=== PATIENT | female | born 1940 | race Caucasian/White ===

== ENCOUNTER 2016-11-19 12:38 | Emergency (ER) | payer OTHER ==
[~2016-11-19] VITALS: Ht 152.4 cm; Wt 67.4 kg
[~2016-11-19 12:38] MED LIST: ASPEC81 PO; CHOL100010 PO; CRDCD240 PO; CRG3125 PO; CYAN100T PO; FLUCINONIDE TD; HYDC25 PO; NTRGSL/4 UT; RANI300T2 PO
[2016-11-19 12:40] VITALS: TEMP 36.4; Ht 152.4 cm; Wt 67.4 kg
[2016-11-19] MEDS ORDERED: SODIUM CHLORIDE 0.9% 1000ML 1,000 ML IV STA (13:02)
[2016-11-19 13:15] LABS: HEMATOCRIT 36.6 % (37-47); MEAN CELL VOLUME 85.3 fL (80-100); MEAN CORPUSCULAR HEMOGLOBIN 29.8 pg (25-34); MEAN PLATELET VOLUME 9.1 fL (7.4-10.4); PLATELET COUNT 298 K/uL (130-400); RED BLOOD COUNT 4.29 M/uL (4.2-5.4); WHITE BLOOD COUNT 4.76 K/uL (4.8-10.8)
--- NOTE | 2016-11-19 13:17 | DIAGNOSTIC IMAGING REPORT ---
CHEST ONE VIEW PORTABLE CLINICAL HISTORY: fatigue, cough cough. Dyspnea. COMPARISON STUDY: No previous studies for comparison. FINDINGS: The bones soft tissues and hemidiaphragms are normal. The cardiomediastinal silhouette is normal. The lungs are clear. The pulmonary vasculature is normal. IMPRESSION: Negative chest. Electronically signed by: Gerald Carbajal M.D. 11/19/2016 1:15 PM Dictated Date/Time: 11/19/2016 1:15 PM
[2016-11-19] MEDS ORDERED: CHOL1000 PO (13:25)
[2016-11-19] MEDS ORDERED: CYAN100T PO (13:25)
[2016-11-19] MEDS ORDERED: HYDR25TA4 PO (13:25)
[2016-11-19] MEDS ORDERED: ASPI-461 PO (13:25)
[2016-11-19] MEDS ORDERED: CARV25TA2 PO (13:25)
[2016-11-19] MEDS ORDERED: PRED-301 PO (13:25)
[2016-11-19] MEDS ORDERED: PRAV20TA PO (13:25)
[2016-11-19] MEDS ORDERED: LORA-741 PO (13:25)
[2016-11-19] MEDS ORDERED: IBUP-1050 PO (13:25)
[2016-11-19] MEDS ORDERED: DILT-115 PO (13:25)
[2016-11-19] MEDS ORDERED: FLUO0.0566 TOP (13:25)
[2016-11-19] MEDS ORDERED: ZNTT/150 PO (13:25)
[2016-11-19] MEDS ORDERED: LOSA50TA6 PO (13:25)
[2016-11-19 13:32] LABS: ALT/SGPT 19 U/L (12-78); BLOOD UREA NITROGEN 21 mg/dl (7-18); BUN/CREATININE RATIO 20.5 (10-20); CALCIUM 9.4 mg/dl (8.5-10.1); CARBON DIOXIDE 30 mmol/L (21-32); CHLORIDE 92 mmol/L (98-107); GLUCOSE 109 mg/dl (70-99); MAGNESIUM 1.9 mg/dl (1.8-2.4); SODIUM 132 mmol/L (136-145)
[2016-11-19 13:37] LABS: ALKALINE PHOSPHATASE 50 U/L (45-117); AST/SGOT 18 U/L (15-37)
[2016-11-19 13:39] LABS: BASO % 0.6 %; BASO ABS # 0.03 K/uL (0-0.2); COMPLETE YES; EOS % 2.1 %; IG% 0.2 %; LYMPH % 54.2 %; LYMPH ABS # 2.58 K/uL (1.2-3.4); MONO % 8.6 %; NEUT % 34.3 %
[2016-11-19 14:48] LABS: URINE APPEARANCE CLEAR (CLEAR); URINE BILIRUBIN NEG (NEG); URINE COLOR YELLOW; URINE EPITHELIAL CELL AUTO >30 /lpf (0-5); URINE NITRITE POS (NEG); URINE SPECIFIC GRAVITY 1.011 (1.000-1.030); UROBILINOGEN NEG (NEG); ZZUR CULT IF INDIC CLEAN CATCH YES
[2016-11-19 14:52] LABS: MANUAL MICROSCOPIC REQUIRED? NO; REVIEW REQ? NO
[2016-11-19] MEDS ORDERED: CEFTRIAXONE SOD INJ 1 GM ADDVIAL IV STA (14:54)
[2016-11-19] MEDS ORDERED: CEPH500C PO (15:00)
[2016-11-19] MEDS ORDERED: ONDA4TAB10 SL (15:00)
--- NOTE | 2016-11-19 15:02 | EMERGENCY ROOM VISIT NOTE ---
History Report prepared by Ximena: Luz Marina Monroe Under the Supervision of: Dr. Travis Mcneil M.D. First contact with patient: 12:52 Chief Complaint: NAUSEA Stated Complaint: DRY HEAVES History of Present Illness The patient is a 76 year old female who presents to the Emergency Room with complaints of persistent nausea starting about a week ago. She also complains of body aches, runny nose, dry cough, and dry heaves. She notes diarrhea occurring a few days ago but denies any diarrhea today. She also reports some difficulty with urinating starting this morning. She denies vomiting, lower extremity swelling, or any other complaints. She denies any history of heart disease. Source of History: patient Onset: about a week ago Position: other (global) Quality: other (nausea) Timing: other (persistent) Associated Symptoms: + cough, + diarrhea (resolved), No vomiting Review of Systems See HPI for pertinent positives & negatives. A total of 10 systems reviewed and were otherwise negative. Past Medical & Surgical Medical Problems: (1) Hypertension Surgical Problems: (1) H/O: hysterectomy Family History Hypertension Stroke Social History Smoking Status: Never Smoker Marital Status: Occupation Status: retired Current/Historical Medications Scheduled Aspirin (Aspirin), 81 MG PO DAILY Carvedilol (Coreg), 25 MG PO BID Cephalexin Monohydrate (Keflex), 500 MG PO TID Cholecalciferol (Vitamin D3), 1 TAB PO DAILY Cyanocobalamin (Vitamin B-12), 100 MCG PO DAILY Diltiazem Hcl Ext Rel (Tiazac), 240 MG PO QAM Fluocinonide (Fluocinonide), 1 APPLN TOP UD Hydrochlorothiazide (Hctz), 25 MG PO QAM Losartan Potassium (Cozaar), 50 MG PO QPM Ondasetron Odt (Zofran Odt), 4 MG SL Q6H Pravastatin (Pravachol ), 40 MG PO QPM Prednisone (Prednisone), 5 MG PO UD Ranitidine (Zantac), 150 MG PO BID Scheduled PRN Ibuprofen (Advil), 200 MG PO DAILY PRN for Pain or Fever Lorazepam (Ativan), 0.5 MG PO HS PRN for Sleep Allergies Coded Allergies: Iodinated Diagnostic Agents (Unverified Allergy, Unknown, DEATLY SICK, ) Physical Exam Vital Signs Date Time Temp Pulse Resp B/P Pulse Ox O2 Delivery O2 Flow Rate FiO2 11/19/16 15:53 77 18 143/69 98 Room Air 11/19/16 14:35 59 18 142/73 95 Room Air 11/19/16 12:54 63 11/19/16 12:40 36.4 67 20 121/77 97 Room Air Physical Exam GENERAL: Patient is uncomfortable and nauseous appearing. Patient is in no acute distress. Periodic dry cough. HEENT: No acute trauma, normocephalic atraumatic, mucous membranes dry, no nasal congestion, no scleral icterus. NECK: No stridor, no adenopathy, no meningismus, trachea is midline. LUNGS: No dyspnea. Clear to auscultation and equal bilaterally. No wheeze, no rhonchi. HEART: Regular rate and rhythm. No murmurs, rubs, gallops appreciated. ABDOMEN: Soft, nontender, bowel sounds positive, no masses appreciated, no peritonitis. BACK: No midline tenderness, no CVA tenderness EXTREMITIES: Normal motion all extremities, no cyanosis, no edema. NEUROLOGIC: Alert and oriented, no acute motor or sensory deficits, no focal weakness, cranial nerves grossly intact. SKIN: No rash, no jaundice, no diaphoresis. Medical Decision & Procedures ER Provider Diagnostic Interpretation: X ray results are stated below per my interpretation and the radiologist's interpretation. CHEST ONE VIEW PORTABLE CLINICAL HISTORY: fatigue, cough cough. Dyspnea. COMPARISON STUDY: No previous studies for comparison. FINDINGS: The bones soft tissues and hemidiaphragms are normal. The cardiomediastinal silhouette is normal. The lungs are clear. The pulmonary vasculature is normal. IMPRESSION: Negative chest. Electronically signed by: Gerald Carbajal M.D. 11/19/2016 1:15 PM Dictated Date/Time: 11/19/2016 1:15 PM Laboratory Results 11/19/16 13:00 Red Blood Count 4.29, Mean Corpuscular Volume 85.3, Mean Corpuscular Hemoglobin 29.8, Mean Corpuscular Hemoglobin Concent 35.0, Mean Platelet Volume 9.1, Neutrophils (%) (Auto) 34.3, Lymphocytes (%) (Auto) 54.2, Monocytes (%) (Auto) 8.6, Eosinophils (%) (Auto) 2.1, Basophils (%) (Auto) 0.6, Neutrophils # (Auto) 1.63, Lymphocytes # (Auto) 2.58, Monocytes # (Auto) 0.41, Eosinophils # (Auto) 0.10, Basophils # (Auto) 0.03 11/19/16 13:00 Test 11/19/16 13:00 11/19/16 14:34 White Blood Count 4.76 K/uL (4.8-10.8) Red Blood Count 4.29 M/uL (4.2-5.4) Hemoglobin 12.8 g/dL (12.0-16.0) Hematocrit 36.6 % (37-47) Mean Corpuscular Volume 85.3 fL (80-100) Mean Corpuscular Hemoglobin 29.8 pg (25-34) Mean Corpuscular Hemoglobin Concent 35.0 g/dl (32-36) Platelet Count 298 K/uL (130-400) Mean Platelet Volume 9.1 fL (7.4-10.4) Neutrophils (%) (Auto) 34.3 % Lymphocytes (%) (Auto) 54.2 % Monocytes (%) (Auto) 8.6 % Eosinophils (%) (Auto) 2.1 % Basophils (%) (Auto) 0.6 % Neutrophils # (Auto) 1.63 K/uL (1.4-6.5) Lymphocytes # (Auto) 2.58 K/uL (1.2-3.4) Monocytes # (Auto) 0.41 K/uL (0.11-0.59) Eosinophils # (Auto) 0.10 K/uL (0-0.5) Basophils # (Auto) 0.03 K/uL (0-0.2) RDW Standard Deviation 42.7 fL (36.4-46.3) RDW Coefficient of Variation 13.7 % (11.5-14.5) Immature Granulocyte % (Auto) 0.2 % Immature Granulocyte # (Auto) 0.01 K/uL (0.00-0.02) Anion Gap 10.0 mmol/L (3-11) Est Creatinine Clear Calc Drug Dose 42.3 ml/min Estimated GFR () 64.3 Estimated GFR (Non- 55.5 BUN/Creatinine Ratio 20.5 (10-20) Calcium Level 9.4 mg/dl (8.5-10.1) Magnesium Level 1.9 mg/dl (1.8-2.4) Total Bilirubin 0.5 mg/dl (0.2-1) Direct Bilirubin 0.1 mg/dl (0-0.2) Aspartate Amino Transf (AST/SGOT) 18 U/L (15-37) Alanine Aminotransferase (ALT/SGPT) 19 U/L (12-78) Alkaline Phosphatase 50 U/L (45-117) Troponin I < 0.015 ng/ml (0-0.045) Total Protein 7.6 gm/dl (6.4-8.2) Albumin 3.8 gm/dl (3.4-5.0) Lipase 186 U/L (73-393) Urine Color YELLOW Urine Appearance CLEAR (CLEAR) Urine pH 6.0 (4.5-7.5) Urine Specific [place] 1.011 (1.000-1.030) Urine Protein NEG (NEG) Urine Glucose (UA) NEG (NEG) Urine Ketones NEG (NEG) Urine Occult Blood 1+ (NEG) Urine Nitrite POS (NEG) Urine Bilirubin NEG (NEG) Urine Urobilinogen NEG (NEG) Urine Leukocyte Esterase MODERATE (NEG) Urine WBC (Auto) 10-30 /hpf (0-5) Urine RBC (Auto) 0-4 /hpf (0-4) Urine Hyaline Casts (Auto) 1-5 /lpf (0-5) Urine Epithelial Cells (Auto) >30 /lpf (0-5) Urine Bacteria (Auto) 4+ (NEG) Laboratory results as reviewed by me. Medications Administered Medications (Trade) Dose Ordered Sig/Delvin Route Start Time Stop Time Status Last Admin Dose Admin Sodium Chloride (Nss 1000ml) 1,000 ml @ 999 mls/hr Q1H1M STAT IV 11/19/16 13:02 11/19/16 14:02 DC 11/19/16 13:08 999 MLS/HR Ceftriaxone Sodium (Rocephin Inj) 1 gm NOW STAT IV 11/19/16 14:54 11/19/16 14:56 DC 11/19/16 15:21 1 GM ED Course 1252: The patient was evaluated in room B11B. A complete history and physical exam was performed. 1302: Sodium Chloride 1000 ml @ 999 mls/hr IV 1400: I reevaluated the patient who is feeling better. 1423: Reevaluated the patient. Discussed results and discharge instructions: She verbalized understanding and agreement. The patient is ready for discharge. 1454: Rocephin Inj 1 gm IV Medical Decision Differential: Sepsis, Infectious (UTI/Pneumonia/Meningitis/etc), Metabolic/ Electrolyte Abnormality, Cardiac, Hepatic, Endocrine, Toxicologic, Neurologic, amongst other pathologies entertained. 76 yr old female arrives with complaint of nausea and weakness and feeling fatigued. Notes recent diarrhea that resolved. Feels nausea was due to car ride over and has not been major issue. Clearly dehydrated. Given fluids with vast improvement and she is feeling much better. UA with 4+ bacteria which would be consistent with UTI and may be issue as well. Likely had flu-like illness that lead to dehydration and with combination that and diarrhea developed UTI. Stable, feeling well with good vitals. She very much wishes to get home. Stable and in no distress. Aware RTED if worsening or other concerns. Stressed keeping hydrated and following up with PCP. RTED if worsening or other concerns. Impression Primary Impression: Urinary tract infection Additional Impressions: Dehydration Viral upper respiratory illness Scribe Attestation The scribe's documentation has been prepared under my direction and personally reviewed by me in its entirety. I confirm that the note above accurately reflects all work, treatment, procedures, and medical decision making performed by me. Departure Information Dispostion Home / Self-Care Prescriptions Ondasetron Odt (ZOFRAN ODT) 4 Mg Tab 4 MG SL Q6H for Nausea, #20 TAB Prov: Travis Mcneil M.D. 11/19/16 Cephalexin Monohydrate (Keflex) 500 Mg Cap 500 MG PO TID for 5 Days, #15 CAP Prov: Travis Mcneil M.D. 11/19/16 Referrals Jasmin Zavala DVenitaOVenita (PCP) Forms HOME CARE DOCUMENTATION FORM, IMPORTANT VISIT INFORMATION Patient Instructions My [facility], Urinary Tract Infection - [facility] Additional Instructions Please follow up with your primary care provider in 1 week for check that your urine has cleared the infection. Problem Qualifiers Primary Impression: Urinary tract infection Urinary tract infection type: acute cystitis Hematuria presence: without hematuria Qualified Codes: N30.00 - Acute cystitis without hematuria
[2016-11-19 15:53] VITALS: BP 143/69; PULSE 77; O2SAT 98
--- NOTE | 2016-11-21 13:46 | Pharmacy Progress Note ---
ED Pharmacist Culture FollowUp Date of Service: Nov 21, 2016. Patient was sent home with a prescription for cephalexin, which should cover the E. coli growing from the patient's urine culture.
== END 2016-11-19 15:58 | disposition home or self-care (01) ==
LOC: C.EDB 12:41
DX: N30.00 Acute cystitis without hematuria (principal); E86.0 Dehydration; J06.9 Acute upper respiratory infection, unspecified; R19.7 Diarrhea, unspecified; I10 Essential (primary) hypertension; Z90.710 Acquired absence of both cervix and uterus; Z82.3 Family history of stroke; Z82.49 Family history of ischemic heart disease and other diseases of the circulatory system; Z79.52 Long term (current) use of systemic steroids; Z79.82 Long term (current) use of aspirin; Z79.899 Other long term (current) drug therapy

== ENCOUNTER 2020-11-27 00:34 | Observation (INO) ==
[2020-11-27] MEDS ORDERED: XYLOCAINE 1%/SOD BICARB 20 ML VIAL INFIL ONE (00:45)
--- NOTE | 2020-11-27 00:52 | Emergency Department Note ---
History of Present Illness General Chief complaint: Fall Stated complaint: DIZZY/FALL/HEADACHE/LACERATION ON LIP Time Seen by Provider: 11/27/20 00:39 Source: patient History of Present Illness Provider complaint: Facial pain Onset (ago): hour(s) less than 1 Location: face Severity: moderate Pain Consistency: + constant Quality: + aching Exacerbated By: + other (Palpation) Associated symptoms: + syncope; no chest pain, no cough, no fever/chills, no headaches, no nausea/vomiting and no shortness of breath This is a 80-year-old female who presents with facial pain after a fall today. Patient went to the bathroom and was coming back to her room. She started to feel very lightheaded and so she fell to the ground. She is not sure if she passed out. She did hit her face on the ground and complains of pain to her face. Her teeth are loose. She has a laceration to her face. Her pain is worse when she touches her face. She does have a headache over her forehead. She denies any blood thinners other than a baby aspirin daily. She denies any n ruben pain, shortness of breath, belly pain, fever, vomiting, cough or cold symptoms, diarrhea or urinary symptoms. She denies any hip or shoulder pain or any extremity or back pain. She does state that earlier in the day she had brief episodes of chest discomfort which lasted only a few seconds. She did not have the chest discomfort prior to passing out. She describes it as a pressure in the middle of her chest. She has no chest discomfort now. She had no associated symptoms with the chest discomfort and thought it was indigestion. She does believe her tetanus shot is up-to-date. Home Medications Medication Instructions Recorded Confirmed Type aspirin [Aspir-Low] 81 mg PO DAILY 11/27/20 11/27/20 History carvedilol 25 mg PO BID 11/27/20 11/27/20 History cholecalciferol (vitamin D3) 25 mcg PO DAILY 11/27/20 11/27/20 History [Vitamin D3] cyanocobalamin (vitamin B-12) 100 mcg PO DAILY 11/27/20 11/27/20 History [Vitamin B-12] diltiazem HCl 240 mg PO QAM 11/27/20 11/27/20 History hydrochlorothiazide 25 mg PO QAM 11/27/20 11/27/20 History lorazepam 0.5 mg PO HS PRN 11/27/20 11/27/20 History losartan 50 mg PO QPM 11/27/20 11/27/20 History omeprazole 20 mg PO QAM 11/27/20 11/27/20 History pravastatin 40 mg PO QPM 11/27/20 11/27/20 History Allergies Allergy/AdvReac Type Severity Reaction Status Date / Time Iodinated Contrast Media Allergy Unknown DEATLY SICK Unverified 11/27/20 01:39 Past Med/Surg History Medical History Anxiety Hypertension Social History Smoking Status: Never smoker current occupational status: retired Feels Safe at Home: Yes Review of Systems See HPI for pertinent positives & negatives. and A total of 10 systems reviewed and were otherwise negative Physical Exam Vital Signs Vital Signs - 24 hr 11/27/20 00:24 11/27/20 00:45 Temperature 36.3 C L Temperature Source Oral Pulse Rate 66 Pulse Rhythm Regular Pulse Strength Normal Respiratory Rate 15 Respiratory Effort / Characteristics Non-Labored Spontaneous Respiratory Depth Normal Respiratory Pattern Regular Blood Pressure 121/58 L Blood Pressure Mean 79 Blood Pressure Position Sitting Pulse Oximetry 93 Oxygen Delivery Method Room Air Room Air Sepsis Recent Fever Within 48 Hours No Sepsis New/Unexplained Change in Mental Status No Sepsis Action Taken by Nursing No Action Required Constitutional: Vital signs reviewed. Eyes: Pupils are equal round reactive to light. Conjunctiva are noninjected. ENT: Pharynx is clear without erythema or exudate. Mucous membranes are moist. 3 cm laceration to the right upper lip. Does not involve the vermilion border. Two 1 cm superficial lacerations on the mucosal side. Loose dentition involving the central incisors. No midline tenderness to the cervical spine. Respiratory: Clear to auscultation bilaterally. Breath sounds are equal bilaterally. Cardiovascular: Regular rate and rhythm. No rubs or gallops. GI: Soft, nondistended and nontender. Bowel sounds are present. Musculoskeletal: No peripheral edema. No hip or shoulder tenderness. Integumentary: No cyanosis. or jaundice. Neurologic: The patient is awake and alert. Cranial nerves II-XII are intact. Motor is 5 out of 5 all extremities. Sensation is intact to light touch all extremities. No pronator drift. Psychiatric: Normal affect. Not anxious appearing. Procedures Laceration Laceration 1: Site: face Side (If applicable): right Size (cm): 3 Description: linear Depth: simple, single layer Local Anesthetic: lidocaine 1% Amount of anesthesia used (mL): 3 Pre-repair: wound explored and irrigated extensively Skin layer closed with: nylon Size (cm): 5-0 Number of sutures: 5 Technique: simple, interrupted Course Administered Medications Potassium Chloride (K Isidro / Wtr) 10 meq in 100 mls @ 100 mls/hr IV ONE ONE Stop: 11/27/20 02:52 Last Admin: 11/27/20 02:03 Dose: 100 mls/hr Documented by: [id number] Discontinued Medications Lidocaine HCl (Xylocaine 1%/Sod Bicarb 20 Ml Vial) 20 ml INFIL NOW ONE Stop: 11/27/20 00:46 Last Admin: 11/27/20 01:04 Dose: 20 ml Documented by: [id number] Morphine Sulfate (Morphine Sulfate 2 Mg/Ml Carp) 2 mg IV NOW STA Stop: 11/27/20 01:31 Last Admin: 11/27/20 01:54 Dose: 2 mg Documented by: [id number] Ondansetron HCl (Ondansetron Inj 2 Mg/Ml 2 Ml Vial) 4 mg IV NOW STA Stop: 11/27/20 01:31 Last Admin: 11/27/20 01:54 Dose: 4 mg Documented by: [id number] Potassium Chloride (Potassium Chloride 10 Meq Tabcr) 20 meq PO NOW STA Stop: 11/27/20 01:54 Last Admin: 11/27/20 02:03 Dose: 20 meq Documented by: [id number] Medical Decision Making Differential Diagnosis Syncope, near syncope, ICH, facial fracture, facial laceration Medical Records Attestation: I reviewed the patient's medical records. I did perform a limited focused review of portions of the patient's old chart on the electronic medical record. The patient has had no recent pertinent visits to this hospital. Home Medications Current Medication List: was personally reviewed by me Laboratory Data Attestation: I reviewed the patient's lab results. Result diagrams: 11/27/20 00:51 11/27/20 00:52 Lab Results 11/27/20 11/27/20 11/27/20 Range/Units 00:51 00:52 01:58 WBC 8.27 (4.8-10.8) K/uL RBC 4.18 L (4.2-5.4) M/uL Hgb 12.7 (12.0-16.0) g/dL Hct 37.1 (37-47) % MCV 88.8 (80-100) fL MCH 30.4 (25-34) pg MCHC 34.2 (32-36) g/dL RDW Std Deviation 45.6 (36.4-46.3) fL RDW Coeff of Mandy 13.9 (11.5-14.5) % Plt Count 287 (130-400) K/uL MPV 9.9 (7.4-10.4) fL Immature Gran % (Auto) 0.1 % Neut % (Auto) 69.7 % Lymph % (Auto) 20.3 % [place] % (Auto) 8.0 % Eos % (Auto) 1.8 % Baso % (Auto) 0.1 % Neut # (Auto) 5.76 (1.4-6.5) K/uL Lymph # (Auto) 1.68 (1.2-3.4) K/uL [place] # (Auto) 0.66 H (0.11-0.59) K/uL Eos # (Auto) 0.15 (0-0.5) K/uL Baso # (Auto) 0.01 (0-0.2) K/uL Immature Gran # (Auto) 0.01 (0.00-0.02) K/uL Sodium 138 (136-145) mmol/L Potassium 3.0 L (3.5-5.1) mmol/L Chloride 103 (98-107) mmol/L Carbon Dioxide 27 (21-32) mmol/L Anion Gap 8.0 (3-11) BUN 17 (7-18) mg/dl Creatinine 0.95 (0.6-1.2) mg/dl Est Cr Clr Drug Dosing 50.0 ml/min Est GFR ( Amer) 66.5 Est GFR (Non-Af Amer) 57.4 BUN/Creatinine Ratio 17.9 (10-20) Glucose 150 H (70-99) mg/dl Calcium 8.5 (8.5-10.1) mg/dl Magnesium 1.7 L (1.8-2.4) mg/dl Total Bilirubin 0.3 (0.2-1) mg/dl AST 18 (15-37) U/L ALT 25 (12-78) U/L Alkaline Phosphatase 86 (45-117) U/L Troponin I < 0.015 (0-0.045) ng/ml Total Protein 7.3 (6.4-8.2) gm/dl Albumin 3.7 (3.4-5.0) gm/dl Globulin 3.6 (2.5-4.0) gm/dl Albumin/Globulin Ratio 1.0 (0.9-2) COVID-19 Eval Order Covid19 IDNow On license of [facility] Imaging Data Radiologist's Impression: Preliminary Findings Only See Final Report For Complete Findings CT HEAD: No ICH, mass effect or edema. No skull fracture. Radiologist: Zack Jones MD Study ready at 01:34 and initial results transmitted at 01:55 Preliminary Findings Only See Final Report For Complete Findings CT C SPINE: No fracture or malalignment. Radiologist: Zack Jones MD Study ready at 01:32 and initial results transmitted at 01:57 bers: [id number] Preliminary Findings Only See Final Report For Complete Findings CT FACIAL: The central maxillary incisors are loose with fracturing of the alveolar maxillary process. Radiologist: Zack Jones MD Study ready at 01:46 and initial results transmitted at 02:18 ECG Data Attestation: I personally reviewed and interpreted this ECG as follows: Indication: + syncope Rate (beats per minute): 70 Rhythm: + normal sinus ECG Intervals/blocks: + First degree AV block ECG ST segments: + Nonspecific ST abnormalities; no ST elevation ECG Findings: + Q waves; no PVCs Head Trauma GCS Score: 14 (Opens eyes to voice) MDM Narrative I did evaluate the patient as noted above. The patient suffered a fall tonight after coming back from the bathroom. She felt extremely lightheaded and then went down. She is not sure if she passed out. She does have a obvious facial injury. Her tetanus is up-to-date. IV access was established. I did place an order for continuous cardiac monitoring. The monitor showed normal sinus rhythm at a rate of 68 bpm. I did order and personally review the patient's 12-lead EKG as described above. She has a first-degree AV block and some nonspecific ST changes. Q waves in the inferior leads. I did order and personally reviewed the images of the patient's chest x-ray as described above. I did order a urine analysis. I did order and review the patient's blood work as noted in the electronic medical record. She has hypokalemia. Her CBC is unremarkable. Troponin is negative. I did treat her with IV and oral potassium. I did order a CT of the head, facial bones, and cervical spine. I did review the images myself as well as the radiology report as described above.I did repair her laceration as noted above. Impression & Plan Syncope, Chest pain, Acute hypokalemia, Facial laceration, Dental injury, Fa cial bone fracture Discharge Plan Visit Data Chief Complaint: Fall Stated Complaint: DIZZY/FALL/HEADACHE/LACERATION ON LIP ED Provider: Fady Valles Discharge Problem: Syncope, Chest pain, Acute hypokalemia, Facial laceration, Dental injury, Facial bone fracture Patient Disposition: Being Evaluated by Hospitalist Forms Stand Alone Forms: [facility] Prescriptions Prescriptions: No Action losartan 50 mg tablet 50 mg PO QPM RF: 0 carvedilol 25 mg tablet 25 mg PO BID RF: 0 pravastatin 40 mg tablet 40 mg PO QPM RF: 0 diltiazem HCl 240 mg capsule,extended release 24hr 240 mg PO QAM RF: 0 lorazepam 0.5 mg tablet 0.5 mg PO HS PRN (Reason: Sleep) RF: 0 aspirin [Aspir-Low] 81 mg Tablet,Delayed Release (Dr/Ec) 81 mg PO DAILY RF: 0 cyanocobalamin (vitamin B-12) [Vitamin B-12] 100 mcg Tablet 100 mcg PO DAILY RF: 0 omeprazole 20 mg capsule,delayed release(DR/EC) 20 mg PO QAM RF: 0 hydrochlorothiazide 25 mg tablet 25 mg PO QAM RF: 0 cholecalciferol (vitamin D3) [Vitamin D3] 25 mcg (1,000 unit) Tablet 25 mcg PO DAILY RF: 0 Referrals Referrals: Darrius Zavala, [Primary Care Provider] -
[2020-11-27 01:02] LABS: Basophils # (auto) 0.01 K/uL (0-0.2); Basophils % (auto) 0.1 %; Eosinophils # (auto) 0.15 K/uL (0-0.5); Eosinophils % (auto) 1.8 %; Hematocrit (blood only) 37.1 % (37-47); Hemoglobin 12.7 g/dL (12.0-16.0); Immature Granulocytes # (auto) 0.01 K/uL (0.00-0.02); Immature Granulocytes % (auto) 0.1 %; Lymphocytes # (auto) 1.68 K/uL (1.2-3.4); Lymphocytes % (auto) 20.3 %; Mean Corpuscular Hemoglobin 30.4 pg (25-34); Mean Corpuscular Hgb Conc 34.2 g/dL (32-36); Mean Corpuscular Volume 88.8 fL (80-100); Mean Platelet Volume 9.9 fL (7.4-10.4); Monocytes # (auto) 0.66 K/uL (0.11-0.59); Neutrophils # (auto) 5.76 K/uL (1.4-6.5); Neutrophils % (auto) 69.7 %; Platelet Count 287 K/uL (130-400); RDW Coefficient of Variation 13.9 % (11.5-14.5); RDW Standard Deviation 45.6 fL (36.4-46.3); Red Blood Count 4.18 M/uL (4.2-5.4); White Blood Count 8.27 K/uL (4.8-10.8)
[2020-11-27 01:21] LABS: Alanine Aminotransferase 25 U/L (12-78); Albumin Level 3.7 gm/dl (3.4-5.0); Aspartate Aminotransferase 18 U/L (15-37); BUN Creatinine Ratio 17.9 (10-20); Blood Urea Nitrogen 17 mg/dl (7-18); Calcium 8.5 mg/dl (8.5-10.1); Carbon Dioxide 27 mmol/L (21-32); Chloride 103 mmol/L (98-107); Est GFR (African American) 66.5; Est GFR (Non-African American) 57.4; Glucose 150 mg/dl (70-99); Magnesium 1.7 mg/dl (1.8-2.4); Sodium 138 mmol/L (136-145)
[2020-11-27 01:26] LABS: Alkaline Phosphatase 86 U/L (45-117); Bilirubin,Total 0.3 mg/dl (0.2-1); Globulin 3.6 gm/dl (2.5-4.0); Total Protein 7.3 gm/dl (6.4-8.2); Troponin I < 0.015 ng/ml (0-0.045)
[2020-11-27] MEDS ORDERED: ONDANSETRON INJ 2 MG/ML 2 ML VIAL IV STA (01:30)
[2020-11-27] MEDS ORDERED: MoRPHine SULFATE 2 MG/ML CARP IV STA (01:30)
[2020-11-27] MEDS ORDERED: POTASSIUM CHLORIDE 10 MEQ TABCR PO STA (01:53)
[2020-11-27] MEDS ORDERED: POTASSIUM CHLORIDE / WTR 10 MEQ/100 ML PLCT IV ONE (01:53)
[2020-11-27] MEDS ORDERED: MAGNESIUM SULFATE / D5W 1 GM/100 ML BAG IV ONE (03:10)
[2020-11-27] MEDS ORDERED: LORazepam 0.5 MG TAB PO PRN (03:40)
[2020-11-27] MEDS ORDERED: ONDANSETRON INJ 2 MG/ML 2 ML VIAL IV PRN (03:40)
[2020-11-27] MEDS ORDERED: POTASSIUM CHLORIDE CRTAB 20 MEQ TABCR PO STA (03:40)
[2020-11-27] MEDS ORDERED: POLYETHYLENE (MIRALAX) 17 GM PACK PO PRN (03:40)
[2020-11-27] MEDS ORDERED: NITROGLYCERIN SL 0.4 MG/TAB TAB SL PRN (03:40)
[2020-11-27] MEDS: ACETAMINOPHEN 325 MG TAB PO PRN ×4 (04:20→20:59)
[2020-11-27] MEDS: SODIUM CHLORIDE 0.9% 1000ML 1,000 ML IV SCH ×2 (04:20→17:45)
--- NOTE | 2020-11-27 05:06 | History and Physical Report ---
DATE OF ADMISSION: 11/27/2020 CHIEF COMPLAINT: Dizziness and fall and chest discomfort. HISTORY OF PRESENT ILLNESS: A 80-year-old female with past medical history significant for hyperlipidemia, history of PACs, history of hypertension, irritable bowel syndrome, vitamin D deficiency, reflux esophagitis, polymyalgia rheumatica, osteoporosis, degenerative disc disease, primary osteoarthritis of right shoulder, migraine, history of celiac disease, history of colonic polyps, primary insomnia, who presents with fall. The patient lives alone in an apartment, but her daughter lives next door. She does not use any support for walking. She went to bathroom and she felt very dizzy and her bed is close to the bathroom and when she came out of the bathroom, she was feeling dizzy and she could not make up to the bed and she fell down on the face. No loss of consciousness. She was able to go to the phone and call her daughter and she was also able to open the door, able to ambulate after some time. She has some pain in the head. Denies any blurred visions, no earache, no runny nose, no sore throat, no cough, no loss of sense of smell or taste. Appetite is okay. No difficulty swallowing. The patient says since last Saturday she is having some intermittent sharp chest pains on and off, thought to be from gas problem and yesterday she slept in the day. Has some dry heaves. No abdominal pain, no diarrhea. She is somewhat constipated. No blood in the stool or black stools. She has some leaky bladder movements. Denies any hematuria. No swelling in the legs. No rash anywhere. Currently resting comfortably and hemodynamically stable. ALLERGIES: IODINATED DIAGNOSTIC AGENTS, LISINOPRIL. PAST MEDICAL HISTORY: As mentioned above. PAST SURGICAL HISTORY: Cardiac catheterization, colonoscopies, open reduction internal fixation of right ankle, exploration of abdomen, lysis of adhesions, appendectomy, cataract surgery, cholecystectomy, hiatal hernia repair, small bowel endoscopy, total hysterectomy. MEDICATIONS: The patient is on aspirin 81 mg p.o. daily, Coreg 25 mg p.o. b.i.d., vitamin D 25 mcg p.o. daily, vitamin B12 100 mcg p.o. daily, diltiazem 240 mg p.o. a.m., hydrochlorothiazide 25 mg p.m., losartan 50 mg p.o. p.m., Ativan 0.5 mg p.o. at bedtime p.r.n., omeprazole 20 mg p.o. a.m., pravastatin 40 mg p.o. p.m. FAMILY HISTORY: Significant for brother had larynx cancer, mother had diabetes and stroke, father had colon cancer. SOCIAL HISTORY: , lives alone. Daughter lives next door. No smoking. Alcohol occasional. No drug abuse. REVIEW OF SYSTEMS: As per HPI. Rest of the review of systems negative. PHYSICAL EXAMINATION: GENERAL: The patient is of moderate build, not in acute distress. VITAL SIGNS: Temperature 36.3, pulse 61, respiratory rate 17, blood pressure 111/55, oxygen 95% on room air. HEENT: Some bluish discoloration seen above the right orbit and sutures seen on the right upper lip. No pallor, no icterus. Pupils equal, round, and reactive to light. Oral mucosa, some blood seen in the mouth. NECK: No neck masses, no JVD. CARDIOVASCULAR: S1, S2 heard, regular rate and rhythm, no murmur, no gallop. RESPIRATORY SYSTEM: Normal AP diameter. No accessory muscle use. No wheezing, no crackles. ABDOMEN: Soft, bowel sounds present, nontender. No distention. CENTRAL NERVOUS SYSTEM: Alert and oriented. No facial droop. Speech is clear. Obeys commands. Moves extremities. Power 5/5 in all extremities. EXTREMITIES: No edema, no erythema. LABORATORY DATA: WBC 8.2, hemoglobin 12.7, hematocrit 37.1, platelets 287. Sodium 138, potassium 3, chloride 103, bicarbonate 27, BUN 17, creatinine 0.9, serum glucose 150, calcium 8.5, magnesium 1.7, total bilirubin 0.3, AST 18, ALT 25, alkaline phosphatase 86. Troponin I less than 0.015. SARS-CoV-2 RNA negative. IMAGING DATA: CT of the head, preliminary report unremarkable. Chest x-ray, no acute findings. Cervical spine CT, preliminary report, no acute findings. Facial CT, the central maxillary incisors are loose with fracturing of the alveolar maxillary process. EKG: Sinus rhythm with first-degree AV block at a rate of 70, nonspecific T-wave abnormality seen. ASSESSMENT AND PLAN: This is a 80-year-old female who presents with near syncope, fall, and chest discomfort. 1. Near syncope: EKG unremarkable. The patient's potassium level is 3. The patient says she is supposed to potassium supplements at home, but she says prescription pills are big and she takes [id number] potassium pills. Troponin is negative. We will monitor in tele floor. Serial enzymes. We will check for orthostatics. Gentle fluids. We will get an echocardiogram and consult cardiology in a.m. Recently seen by cardiology and at that time also she complained of some dizziness and there is plan for Holter if the dizziness persists. Await cardiac input. 2. Electrolyte abnormality Potassium of 3 and magnesium of 1.7, will replace.On hctz. Continue her home potassium supplement. 3. Fall. from above. Fracture of the alveolar process. Will consult orofacial surgery. Will also get PT/OT when stable. 4. Chest discomfort. The patient is having on and off mild sharp pains in the chest since last couple of days. Will follow serial enzymes, repeat EKG, and echocardiogram. Will keep n.p.o. until seen by cardiology. 5. History of PACs. Will monitor in the tele floor. 6. Hypertension: Continue her home medication of Coreg, diltiazem, hydrochlorothiazide, losartan. We will monitor the blood pressure. 7. Hyperlipidemia: Continue on pravastatin. 8. Gastroesophageal reflux disease, reflux esophagitis, on omeprazole. 9. Deep venous thrombosis prophylaxis: Sequential compression devices for now. 10. Disposition: Observe in tele floor. Expect to discharge home and follow up with the family doctor. Code status, we will keep her full code for now. PT/OT prior to discharge. Social service to help with discharge planning. DAY
[2020-11-27] MEDS ORDERED: DICLOFENAC SOD 1% GEL 100 GM TUBE EXT PRN (05:20)
[2020-11-27 07:09] LABS: Basophils # (auto) 0.01 K/uL (0-0.2); Basophils % (auto) 0.1 %; Eosinophils # (auto) 0.07 K/uL (0-0.5); Eosinophils % (auto) 0.8 %; Hematocrit (blood only) 33.5 % (37-47); Hemoglobin 11.5 g/dL (12.0-16.0); Immature Granulocytes # (auto) 0.01 K/uL (0.00-0.02); Immature Granulocytes % (auto) 0.1 %; Lymphocytes # (auto) 1.59 K/uL (1.2-3.4); Lymphocytes % (auto) 19.2 %; Mean Corpuscular Hemoglobin 30.3 pg (25-34); Mean Corpuscular Hgb Conc 34.3 g/dL (32-36); Mean Corpuscular Volume 88.4 fL (80-100); Mean Platelet Volume 9.7 fL (7.4-10.4); Monocytes # (auto) 0.58 K/uL (0.11-0.59); Neutrophils # (auto) 6.03 K/uL (1.4-6.5); Neutrophils % (auto) 72.8 %; Platelet Count 273 K/uL (130-400); RDW Coefficient of Variation 13.7 % (11.5-14.5); RDW Standard Deviation 44.9 fL (36.4-46.3); Red Blood Count 3.79 M/uL (4.2-5.4); White Blood Count 8.29 K/uL (4.8-10.8)
[2020-11-27 07:38] LABS: BUN Creatinine Ratio 18.4 (10-20); Blood Urea Nitrogen 13 mg/dl (7-18); Calcium 8.1 mg/dl (8.5-10.1); Carbon Dioxide 28 mmol/L (21-32); Chloride 104 mmol/L (98-107); Creatinine Clr Calc Pharmacy 57.6 ml/min; Est GFR (African American) 94.6; Est GFR (Non-African American) 81.6; Glucose 101 mg/dl (70-99); Magnesium 2.3 mg/dl (1.8-2.4); Potassium 3.3 mmol/L (3.5-5.1); Sodium 138 mmol/L (136-145)
[2020-11-27 07:43] LABS: Troponin I < 0.015 ng/ml (0-0.045)
--- NOTE | 2020-11-27 07:48 | CT Scan Report ---
HEAD CT NONCONTRAST CT DOSE: 935.89 mGy.cm HISTORY: fall eval for injury TECHNIQUE: Multiaxial CT images of the head were performed without the use of intravenous contrast. A utomated exposure control was utilized for this study. A dose lowering technique was utilized adheri ng to the principles of ALARA. Comparison: None. Findings: The paranasal sinuses and mastoid air cells are clear. The calvarium and skull base are int act. There is no mass, hematoma, midline shift, acute infarct. White matter hypodensity is nonspecifi c but suggestive of microvascular ischemic change. The ventricles and sulci demonstrate mild age-rela davin involutional changes. Impression: No acute intracranial abnormality. ACT 112: Negative or not required by law. Electronically signed by: Victor Manuel Nagy M.D. 11/27/2020 7:46 AM
--- NOTE | 2020-11-27 08:17 | CT Scan Report ---
CERVICAL SPINE CT CT DOSE: HISTORY: fall eval for injury TECHNIQUE: Multiaxial CT images of the cervical spine were performed and reformatted in the sagittal and coronal plane without the use of contrast. A dose lowering technique was utilized adhering to th e principles of ALARA. COMPARISON: None. FINDINGS: No fractures. No subluxation. Prevertebral soft tissues and the C1-C2 interval are intact. No pneumothorax. There is 1 cm right thyroid nodule. IMPRESSION: No fractures within the cervical spine. ACT 112: Negative or not required by law. Electronically signed by: Victor Manuel Nagy M.D. 11/27/2020 8:16 AM
--- NOTE | 2020-11-27 08:26 | CT Scan Report ---
MAXILLOFACIAL CT CT DOSE: HISTORY: fall eval for injury TECHNIQUE: Multiaxial CT images of the maxillofacial region were performed and reformatted in the cor onal plane without the use of contrast. A dose lowering technique was utilized adhering to the princ ipljuan of BESSY. COMPARISON: None. FINDINGS: The visualized cervical spine, skull base, pterygoid plates, nasal bones, lamina papyracea, orbital floors, mandible, and zygomatic arches are intact. The central maxillary incisors are loose with small fractures involving the adjacent alveolar maxillary process. IMPRESSION: The central maxillary incisors are loose with small fractures involving the adjacent alveolar maxilla ry process. ACT 112: Negative or not required by law. Electronically signed by: Victor Manuel Nagy M.D. 11/27/2020 8:25 AM
[2020-11-27] MEDS: dilTIAZem HCL 240 MG CAPCR PO SCH (08:29)
[2020-11-27] MEDS: PANTOprazole 40 MG TAB PO SCH (08:30)
[2020-11-27] MEDS: CHOLECALCIFEROL 1,000 UNITS 25 MCG TAB PO SCH (08:30)
[2020-11-27] MEDS: CYANOCOBALAMIN (VITAMIN B-12) 100 MCG TABLET PO SCH (08:30)
[2020-11-27] MEDS: POTASSIUM CHLORIDE CRTAB 20 MEQ TABCR PO SCH (08:30)
[2020-11-27] MEDS: ASPIRIN 81 MG ECTAB PO SCH (08:30)
--- NOTE | 2020-11-27 08:41 | XRay Report ---
XR chest 1V portable HISTORY: dizzy COMPARISON: Chest 11/19/2016. FINDINGS: Mild elevation of the left hemidiaphragm, unchanged. No pneumothorax. No pleural effusions. Old, healed left humeral neck fracture. The lungs are clear. The heart is normal in size. IMPRESSION: No acute process. ACT 112: Negative or not required by law. Electronically signed by: Victor Manuel Nagy M.D. 11/27/2020 8:40 AM
[2020-11-27] MEDS ORDERED: carvediloL 25 MG TAB PO SCH (09:00)
[2020-11-27] MEDS ORDERED: hydroCHLOROthiazide 25 MG TAB PO SCH (09:00)
--- NOTE | 2020-11-27 09:20 | Electrocardiogram Report ---
Test Reason : Blood Pressure : / mmHG Vent. Rate : 070 BPM Atrial Rate : 070 BPM P-R Int : 218 ms QRS Dur : 086 ms QT Int : 418 ms P-R-T Axes : 063 003 019 degrees QTc Int : 451 ms Poor data quality, interpretation may be adversely affected Sinus rhythm with 1st degree A-V block Inferior infarct (cited on or before 13-MAR-2005) Abnormal ECG When compared with ECG of 15-MAR-2005 06:37, [place] interval has increased Nonspecific T wave abnormality now evident in Anterior leads Confirmed by Bakari Velázquez ([id number]) on 11/27/2020 9:20:25 AM Referred By: REFERRED SELF Confirmed By:Bakari Velázquez
--- NOTE | 2020-11-27 09:31 | Hospitalist Progress Note ---
Date of Service November 27, 2020 Assessment & Plan (1) Dizziness: Fall Present on admission after a fall due to dizziness after using the toilet Possible related to vasovagal vs orthostatic CT head showed no acute intracranial abnormality CT face showed central maxillary incisors are loose with small fractures involving the adjacent alveolar maxillary process. Tele monitor showed no arrhythmia Cardiology consulted Echo showed mild concentric left ventricular hypertrophy. Grade 2 diastolic dysfunction. Ejection fraction 65 to 70%. Fall precaution PT/OT eval daughter would like a script for walker Will advise pt not to drive for now Continue monitor closely Fracture of the alveolar maxillary process Due to the fall Oral maxillofacial surgery consulted Will start on easy to chew diet or full liquid Electrolytes abnormality Potassium 3 and Mag 1.7 on admission Electrolytes replaced Continue monitor Chest discomfort. EKG showed no ST changes Troponin negative x 2 Continue aspirin, carvedilol and statin ECHO showed no wall motion abnormality Currently asymptomatic Cardiology on board Stable Hypertensio BP stable Continue her home medication of Coreg, diltiazem, hydrochlorothiazide, losartan. Hyperlipidemia Continue on pravastatin. Gastroesophageal reflux disease, Continue omeprazole. DVT px on SCD for now CODE STATUS FULL CODE Admission and Anticipated Discharge Date Admission Date: November 27, 2020 Subjective Pt was seen and examined for follow up of dizziness Lying in bed with no distress watching TV. Pt said that she feels ok She said that she had some soreness above her lip and around the front teeth area Spoke to daughter Willa ([phone]) provided with update and answered all her questions Denies any chest pain, palpitation, dizziness, fever and SOB Review of Systems Review of Systems: All systems reviewed & are unremarkable except as noted in Subjective Physical Exam Physical Exam: General- No acute distress Head- atraumatic Eyes- PERRL, EOMI, ENT- oropharynx clear, + laceration around right philtral area (above the lips), +frontal tooth tenderness Neck- supple, no JVD Lungs- clear to auscultation Heart- regular rhythm; no murmur Abdomen- normal bowel sounds, soft, nontender Extremities- no calf tenderness Neuro- alert, oriented x 3; PERRL, EOMI; no facial palsy; no dysarthria Skin- warm & dry Results & Data Results & Data ([facility]) Vital Signs (Past 12 Hours) Vital Signs Temp Pulse Pulse Resp BP BP Pulse Ox 11/27/20 07:12 36.5 C 67 20 119/65 97 11/27/20 03:41 36.5 C 68 124/75 97 11/27/20 03:00 66 16 123/62 92 11/27/20 02:30 60 12 114/61 92 11/27/20 02:00 61 17 111/55 L 91 11/27/20 01:30 63 15 117/57 L 96 11/27/20 01:00 64 13 120/55 L 95 11/27/20 00:45 36.3 C L 66 15 121/58 L 93 11/27/20 00:38 69 18 121/58 L 94
[2020-11-27 11:06] LABS: Appearance Urine Clear (Clear); Bacteria Urine Automated 2+ (Negative); Bilirubin Urine Negative (Negative); Blood Urine 1+ (Negative); Cast Urine Automated 0 /lpf (0-5); Color Urine Yellow; Epithelial Cell Urine Auto 20-30 /lpf (0-5); Glucose Urine UA Negative (Negative); Ketones Urine Negative (Negative); Leukocyte Esterase Urine Trace (Negative); Nitrite Urine Positive (Negative); Protein Urine Negative (Negative); RBC Urine Automated 0-4 /hpf (0-4); Specific Gravity Urine 1.008 (1.000-1.030); Urobilinogen Urine Negative (Negative)
--- NOTE | 2020-11-27 11:08 | Cardiology Consultation ---
Date of Consultation November 27, 2020 Assessment & Plan (1) Syncope: (2) Facial bone fracture: (3) Hypertension: (4) Hypokalemia: 80-year-old female presents with possible syncope. Blood pressure well controlled with borderline resting hypotension on admission. Treated with high- dose multidrug antihypertensive therapy. Recommend de-escalation of medications. Reduce carvedilol to 12.5 mg twice daily. Reduce hydrochlorothiazide to 12.5 mg daily. Agree with gentle hydration. Continue telemetry monitoring to exclude presence of symptomatic kael- or tachy- dysrhythmia. If telemetry is unrevealing during hospitalization, recommend 14- day ZIO monitor in the outpatient setting. Supplement potassium as indicated. Repeat basic metabolic panel in a.m. Continue inpatient observation with telemetry for an additional 24 hours. All questions answered to patient satisfaction. Thank you for allow me to participate in the care of your patient. History of Present Illness Reason for Consultation: Fall, possible syncope Requesting Physician: Dr. Downey Attending Physician: Guicho Dhillon MD History of Present Illness 72-year-old female presented to the emergency department secondary to fall and possible syncope. Reports becoming acutely dizzy and "woozy" while using the commode. Symptoms occurred post micturition. She became acutely symptomatic while seated. She attempted to walk to her bedroom where she fell and struck her face. Sutures applied in the ER. Unsure whether she lost consciousness. Denies chest discomfort or palpitations preceding her fall. Reported a similar episode approximately 3 weeks ago while standing in her kitchen. At that time, her episode of lightheadedness was preceded by musculoskeletal discomfort. Currently notes pain related to her recent injury. Denies chest pain, palpitations, or shortness of breath. Telemetry reveals sinus rhythm in the 60s. No significant bradycardia, pauses, heart block recorded. No sustained dysrhythmias. Cardiac enzymes are undetectable. Preliminary review of bedside 2D transthoracic echocardiogram demonstrates borderline hyperdynamic left ventricular systolic function. No regional wall motion abnormalities or significant valvular pathology. Patient carries a history of hypertension, PACs, and nonobstructive coronary disease per cardiac catheterization 2009. Allergies Allergy/AdvReac Type Severity Reaction Status Date / Time Iodinated Contrast Media Allergy Unknown DEATLY SICK Unverified 11/27/20 01:39 Home Medications Medication Instructions Recorded Confirmed Type aspirin [Aspir-Low] 81 mg PO DAILY 11/27/20 11/27/20 History carvedilol 25 mg PO BID 11/27/20 11/27/20 History cholecalciferol (vitamin D3) 25 mcg PO DAILY 11/27/20 11/27/20 History [Vitamin D3] cyanocobalamin (vitamin B-12) 100 mcg PO DAILY 11/27/20 11/27/20 History [Vitamin B-12] diltiazem HCl 240 mg PO QAM 11/27/20 11/27/20 History hydrochlorothiazide 25 mg PO QAM 11/27/20 11/27/20 History lorazepam 0.5 mg PO HS PRN 11/27/20 11/27/20 History losartan 50 mg PO QPM 11/27/20 11/27/20 History omeprazole 20 mg PO QAM 11/27/20 11/27/20 History pravastatin 40 mg PO QPM 11/27/20 11/27/20 History Patient History Medical History Anxiety Hypertension Social History Smoking Status: Never smoker Hx Alcohol Use: Yes Alcohol type: wine Hx Substance Use: No Preferred Language: Indonesian Communication Ability: Effective Healthcare Analyst Required: No Beliefs That Will Affect Care: None Current Living Situation: Alone current occupational status: retired Other Information That Helps Us Care for You: No Feels Safe at Home: Yes Safety Concerns: Feels Safe At This Time Assistive Devices: Glasses Review of Systems Review of Systems: All systems reviewed & are unremarkable except as noted in Subjective Physical Exam Constitutional: well nourished and + obese; no acute distress Respiratory: normal respiratory effort; no respiratory distress and no labored breathing Auscultation: lungs clear to auscultation bilaterally; no crackles, no rales, no rhonchi and no wheezes Cardiovascular: Rate/Rhythm: regular rate and regular rhythm Heart Sounds: normal S1 and normal S2; no murmur Vessels: radial pulses present; no JVD Extremities: no edema Gastrointestinal (Abdomen): Inspection/Auscultation: normal bowel sounds; abdomen not distended Percussion/Palpation: abdomen soft; abdomen nontender, no guarding and abdomen not rigid Skin: no rashes, warm and dry Neurologic: moves all extremities; no focal motor deficits Motor/Sensory: no tremor Psychiatric: A+Ox3, euthymic affect Results & Data ([facility]) Vital Signs (Past 12 Hours) Vital Signs Temp Pulse Pulse Resp BP BP Pulse Ox 11/27/20 08:00 59 L 11/27/20 07:12 36.5 C 67 20 119/65 97 11/27/20 03:41 36.5 C 68 124/75 97 11/27/20 03:00 66 16 123/62 92 11/27/20 02:30 60 12 114/61 92 11/27/20 02:00 61 17 111/55 L 91 11/27/20 01:30 63 15 117/57 L 96 11/27/20 01:00 64 13 120/55 L 95 11/27/20 00:45 36.3 C L 66 15 121/58 L 93 11/27/20 00:38 69 18 121/58 L 94 (1) Syncope Syncope type: unspecified Qualified Code(s): R55 - Syncope and collapse (2) Facial bone fracture Encounter type: initial encounter Facial bone/location: unspecified site of maxillary bone Fracture type: closed Laterality: unspecified laterality Quali fied Code(s): S02.401A - Maxillary fracture, unspecified side, initial encounter for closed fracture (3) Hypertension Hypertension type: essential hypertension Qualified Code(s): I10 - Essential (primary) hypertension
[2020-11-27] MEDS: carvediloL 12.5 MG TAB PO SCH (20:56)
[2020-11-27] MEDS ORDERED: PRAVASTATIN SOD 40 MG TAB PO SCH (21:00)
[2020-11-27] MEDS ORDERED: LOSARTAN POTASSIUM 50 MG TAB PO SCH (21:00)
[2020-11-28] MEDS: ACETAMINOPHEN 325 MG TAB PO PRN ×2 (01:47→09:47)
[2020-11-28 07:52] LABS: BUN Creatinine Ratio 8.5 (10-20); Calcium 8.9 mg/dl (8.5-10.1); Est GFR (African American) 100.1; Est GFR (Non-African American) 86.4; Potassium 3.7 mmol/L (3.5-5.1)
[2020-11-28] MEDS: dilTIAZem HCL 240 MG CAPCR PO SCH (07:54)
[2020-11-28] MEDS: ASPIRIN 81 MG ECTAB PO SCH (07:55)
[2020-11-28] MEDS: CYANOCOBALAMIN (VITAMIN B-12) 100 MCG TABLET PO SCH (07:55)
[2020-11-28] MEDS: PANTOprazole 40 MG TAB PO SCH (07:55)
[2020-11-28] MEDS: carvediloL 12.5 MG TAB PO SCH (07:56)
[2020-11-28] MEDS: POTASSIUM CHLORIDE CRTAB 20 MEQ TABCR PO SCH (07:56)
[2020-11-28] MEDS: CHOLECALCIFEROL 1,000 UNITS 25 MCG TAB PO SCH (07:56)
[2020-11-28] MEDS ORDERED: hydroCHLOROthiazide 25 MG TAB PO SCH (09:00)
--- NOTE | 2020-11-28 09:40 | Cardiology Progress Note ---
Date of Service November 28, 2020 Assessment & Plan (1) Syncope: (2) Facial bone fracture: (3) Hypertension: (4) Hypokalemia: 80-year-old female presents with possible syncope. Etiology possibly dehydration and/or hypotension. No recurrent symptoms since admission. No arrhythmias on monitor. Carvedilol reduced to 12.5 mg BID HCTZ reduced to 12.5 mg daily Potassium levels improved this morning. BP borderline elevated this AM prior to meds. will monitor. Patient reports long history of elevated BP in outpatient setting but well controlled/low BP at home. Case discussed with Dr. Tellez. Will arrange 2 week ZIO monitor on discharge and cardio f/u in about 4 weeks to review monitor and BP. Admission and Anticipated Discharge Date Admission Date: November 27, 2020 Subjective Patient resting in bed comfortably. Notes mild facial pain this morning and mild dull headache due to fractures. Requesting Tylenol. No recurrent dizziness, near syncope or syncope since admission. BP trending slightly higher this AM, but was prior to receiving morning meds. No chest pain or dyspnea. No orthopnea, PND or edema. No palpitations. Telemetry reveals NSR with HR's ranging 50-70 bpm Review of Systems Review of Systems: All systems reviewed & are unremarkable except as noted in HPI & below Physical Exam Constitutional: WD/WN, vitals as above average body habitus; no acute distress Laceration above lip with sutures is dry. Hematoma of the upper lip Eyes: PERRL, conjunctivae normal, anicteric sclerae Neck: trachea midline, no thyromegaly Respiratory: normal respiratory effort, lungs clear to auscultation Cardiovascular: RRR, no murmur, no edema Vessels: no JVD Gastrointestinal (Abdomen): normal bowel sounds, soft, nontender, no hepatosplenomegaly Musculoskeletal: no cyanosis or clubbing, extremities motor strength 5/5 Psychiatric: A+Ox3, euthymic affect Results & Data ([facility]) Vital Signs (Past 12 Hours) Vital Signs Temp Pulse Pulse Resp BP BP Pulse Ox 11/28/20 07:18 36.6 C 72 18 150/72 H 97 11/28/20 04:00 36.9 C 61 20 120/73 98 11/28/20 03:40 11/28/20 00:01 60 11/27/20 22:48 36.7 C 63 20 125/74 95 Pulse Ox 11/28/20 07:18 11/28/20 04:00 11/28/20 03:40 98 11/28/20 00:01 11/27/20 22:48 Laboratory Results 11/28/20 11/27/20 11/27/20 Range/Units 06:35 12:54 10:18 Sodium 143 (136-145) mmol/L Potassium 3.7 (3.5-5.1) mmol/L Chloride 107 (98-107) mmol/L Carbon Dioxide 27 (21-32) mmol/L Anion Gap 9.0 (3-11) BUN 5 L D (7-18) mg/dl Creatinine 0.62 (0.6-1.2) mg/dl Est Cr Clr Drug Dosing 66.0 ml/min Est GFR ( Amer) 100.1 Est GFR (Non-Af Amer) 86.4 BUN/Creatinine Ratio 8.5 L (10-20) Glucose 88 (70-99) mg/dl Calcium 8.9 (8.5-10.1) mg/dl Troponin I < 0.015 (0-0.045) ng/ml Urine Color Yellow Urine Appearance Clear (Clear) Urine pH 7.0 (4.5-7.5) Ur Specific [place] 1.008 (1.000-1.030) Urine Protein Negative (Negative) Urine Glucose (UA) Negative (Negative) Urine Ketones Negative (Negative) Urine Blood 1+ H (Negative) Urine Nitrite Positive A (Negative) Urine Bilirubin Negative (Negative) Urine Urobilinogen Negative (Negative) Ur Leukocyte Esterase Trace H (Negative) Urine WBC (Auto) 1-5 (0-5) /hpf Urine RBC (Auto) 0-4 (0-4) /hpf U Hyaline Cast (Auto) 0 (0-5) /lpf U Epithel Cells (Auto) 20-30 H (0-5) /lpf Urine Bacteria (Auto) 2+ H (Negative) Diagnostic Findings Telemetry reviewed. NSR and sinus bradycardia with rates ranging 50-70 bpm. No arrhythmias. No pauses Medications Administered Current Inpatient Medications Acetaminophen (Acetaminophen 325 Mg Tab) 650 mg PO Q4H PRN PRN Reason: Pain or Fever Stop: 12/27/20 03:39 Last Admin: 11/28/20 01:47 Dose: 650 mg Documented by: Aspirin (Aspirin 81 Mg Ectab) 81 mg PO DAILY [facility] Stop: 12/27/20 08:59 Last Admin: 11/28/20 07:55 Dose: 81 mg Documented by: Carvedilol (Carvedilol 12.5 Mg Tab) 12.5 mg PO BID [facility] Stop: 12/27/20 20:59 Last Admin: 11/28/20 07:56 Dose: 12.5 mg Documented by: Cyanocobalamin (Cyanocobalamin (Vitamin B-12) 100 Mcg Tablet) 100 mcg PO DAILY [facility] Stop: 12/27/20 08:59 Last Admin: 11/28/20 07:55 Dose: 100 mcg Documented by: Diclofenac Sodium (Diclofenac Sod 1% Gel 100 Gm Tube) 2 gm EXT BID PRN PRN Reason: Pain Stop: 12/27/20 08:59 Last Admin: 11/27/20 05:45 Dose: 2 gm Documented by: Diltiazem HCl (Diltiazem Hcl 240 Mg Capcr) 240 mg PO QAM [facility] Stop: 12/27/20 08:59 Last Admin: 11/28/20 07:54 Dose: 240 mg Documented by: Hydrochlorothiazide (Hydrochlorothiazide 25 Mg Tab) 12.5 mg PO QAM [facility] Stop: 12/28/20 08:59 Last Admin: 11/28/20 07:55 Dose: 12.5 mg Documented by: Ceftriaxone Sodium 1,000 mg/ (Dextrose) 50 mls @ 100 mls/hr IV Q24H [facility]; Protocol Stop: 12/08/20 08:14 Lorazepam (Lorazepam 0.5 Mg Tab) 0.5 mg PO HS PRN PRN Reason: Sleep Stop: 12/27/20 03:39 Losartan Potassium (Losartan Potassium 50 Mg Tab) 50 mg PO QPM [facility] Stop: 12/27/20 20:59 Last Admin: 11/27/20 20:56 Dose: 50 mg Documented by: Nitroglycerin (Nitroglycerin Sl 0.4 Mg/Tab Tab) 0.4 mg SL UD PRN PRN Reason: Chest Pain Stop: 12/27/20 03:39 Ondansetron HCl (Ondansetron Inj 2 Mg/Ml 2 Ml Vial) 4 mg IV Q6H PRN PRN Reason: Nausea Stop: 12/27/20 03:39 Pantoprazole Sodium (Pantoprazole 40 Mg Tab) 40 mg PO QAM KRISTEN Stop: 12/27/20 08:59 Last Admin: 11/28/20 07:55 Dose: 40 mg Documented by: Polyethylene Glycol (Polyethylene (Miralax) 17 Gm Pack) 17 gm PO DAILY PRN PRN Reason: Constipation Stop: 12/27/20 03:39 Potassium Chloride (Potassium Chloride Crtab 20 Meq Tabcr) 20 meq PO QAM KRISTEN Stop: 12/27/20 08:59 Last Admin: 11/28/20 07:56 Dose: 20 meq Documented by: Pravastatin Sodium (Pravastatin Sod 40 Mg Tab) 40 mg PO QPM KRISTEN Stop: 12/27/20 20:59 Last Admin: 11/27/20 20:56 Dose: 40 mg Documented by: Vitamin D (Cholecalciferol 1,000 Units 25 Mcg Tab) 1,000 units PO DAILY KRISTEN Stop: 12/27/20 08:59 Last Admin: 11/28/20 07:56 Dose: 1,000 units Documented by: (1) Facial bone fracture Encounter type: initial encounter Facial bone/location: unspecified site of maxillary bone Fracture type: closed Laterality: unspecified laterality Qualified Code(s): S02.401A - Maxillary fracture, unspecified side, initial encounter for closed fracture (2) Syncope Syncope type: unspecified Qualified Code(s): R55 - Syncope and collapse (3) Hypertension Hypertension type: essential hypertension Qualified Code(s): I10 - Essential (primary) hypertension
[2020-11-28] MEDS ORDERED: cefTRIAXone SODIUM 1,000 MG in DEXTROSE 5% 50 ML IV SCH (10:00)
--- NOTE | 2020-11-28 12:54 | Electrocardiogram Report ---
Test Reason : Blood Pressure : / mmHG Vent. Rate : 062 BPM Atrial Rate : 062 BPM P-R Int : 176 ms QRS Dur : 078 ms QT Int : 404 ms P-R-T Axes : 068 030 -01 degrees QTc Int : 410 ms Normal sinus rhythm Normal ECG When compared with ECG of 27-NOV-2020 00:41, [place] interval has decreased Criteria for Inferior infarct are no longer Present Confirmed by Bakari Velázquez ([id number]) on 11/28/2020 12:54:27 PM Referred By: REFERRED SELF Confirmed By:Bakari Velázquez
--- NOTE | 2020-11-28 13:43 | Hospitalist Progress Note ---
Date of Service November 28, 2020 Assessment & Plan (1) Dizziness: Fall Present on admission after a fall due to dizziness after using the toilet Possible related to vasovagal vs orthostatic CT head showed no acute intracranial abnormality CT face showed central maxillary incisors are loose with small fractures involving the adjacent alveolar maxillary process. Tele monitor showed no arrhythmia Cardiology consulted Echo showed mild concentric left ventricular hypertrophy. Grade 2 diastolic dysfunction. Ejection fraction 65 to 70%. Fall precaution PT/OT eval Will give a script for a walker on discharge Pt was advised pt not to drive for now until follow up with cardiology Cardiology or Provider will arrange 2 week ZIO monitor on discharge and cardio f/u in about 4 weeks to review monitor and BP. Continue monitor closely UTI Pt said that she has been having increase urinary frequency Urine cx grew gram negative bacilli Starting on Rocephin 1g IV Waiting for urine sensitivity to transition to PO abx (called the microbiology about sensitivity--Pending until tomorrow ) Since pt does not want to stay in the hospital for another night, will discharge on Keflex, then will follow urine cx and call her tomorrow if abx needs to change Discussed with daughter and agreed with the plan Fracture of the alveolar maxillary process Due to the fall Oral maxillofacial surgery consulted Called Dr. Hubbard office. Spoke to the midlevel Matilde. Dr. Hubbard's office never received the consult [place]. Midlevel recommended to discuss the case to Dr. Pedroza Case discussed with Dr. Pedroza that recommended outpatient follow up with dentist or his office or Dr. Dimas's office Continue easy to chew diet or puree diet Electrolytes abnormality Potassium 3 and Mag 1.7 on admission K 3.7 today Continue K supplement Check BMP in 1 week Chest discomfort. EKG showed no ST changes Troponin negative x 2 Continue aspirin, carvedilol and statin ECHO showed no wall motion abnormality Currently asymptomatic Cardiology on board Stable Hypertension BP elevated this morning On home medication with Coreg, diltiazem, hydrochlorothiazide, losartan. HCTZ and Coreg decreased by half Hyperlipidemia Continue on pravastatin. Gastroesophageal reflux disease, Continue omeprazole. DVT px on SCD for now CODE STATUS FULL CODE Disposition Plan discharge home today Admission and Anticipated Discharge Date Admission Date: November 27, 2020 Subjective Pt was seen and examined for follow up of Dizziness Sitting at the edge of the bed with no distress Pt said that she feels much better She is very anxious to go home today Will call daughter today and will provide with updates Denies any chest pain, palpitation, dizziness and SOB Review of Systems Review of Systems: All systems reviewed & are unremarkable except as noted in Subjective Physical Exam Physical Exam: General- No acute distress Head- atraumatic Eyes- PERRL, EOMI, ENT- oropharynx clear, + laceration around right philtral area (above the lips), +frontal tooth tenderness Neck- supple, no JVD Lungs- clear to auscultation Heart- regular rhythm; no murmur Abdomen- normal bowel sounds, soft, nontender Extremities- no calf tenderness Neuro- alert, oriented x 3; PERRL, EOMI; no facial palsy; no dysarthria Skin- warm & dry Results & Data Results & Data ([facility]) Vital Signs (Past 12 Hours) Vital Signs Temp Pulse Pulse Resp BP BP Pulse Ox 11/28/20 10:00 36.6 C 18 95 11/28/20 08:00 58 L 11/28/20 07:18 36.6 C 72 18 150/72 H 97 11/28/20 04:00 36.9 C 61 20 120/73 98 11/28/20 03:40 Pulse Ox 11/28/20 10:00 11/28/20 08:00 11/28/20 07:18 11/28/20 04:00 11/28/20 03:40 98
--- NOTE | 2020-11-29 08:00 | Discharge Summary ---
Date of Service November 28, 2020 Admission HPI Per Admitting Provider GENERAL: The patient is of moderate build, not in acute distress. VITAL SIGNS: Temperature 36.3, pulse 61, respiratory rate 17, blood pressure 111/55, oxygen 95% on room air. HEENT: Some bluish discoloration seen above the right orbit and sutures seen on the right upper lip. No pallor, no icterus. Pupils equal, round, and reactive to light. Oral mucosa, some blood seen in the mouth. NECK: No neck masses, no JVD. CARDIOVASCULAR: S1, S2 heard, regular rate and rhythm, no murmur, no gallop. RESPIRATORY SYSTEM: Normal AP diameter. No accessory muscle use. No wheezing, no crackles. ABDOMEN: Soft, bowel sounds present, nontender. No distention. CENTRAL NERVOUS SYSTEM: Alert and oriented. No facial droop. Speech is clear. Obeys commands. Moves extremities. Power 5/5 in all extremities. EXTREMITIES: No edema, no erythema. Admission Exam Per Admitting Provider CHIEF COMPLAINT: Dizziness and fall and chest discomfort. HISTORY OF PRESENT ILLNESS: A 80-year-old female with past medical history significant for hyperlipidemia, history of PACs, history of hypertension, irritable bowel syndrome, vitamin D deficiency, reflux esophagitis, polymyalgia rheumatica, osteoporosis, degenerative disc disease, primary osteoarthritis of right shoulder, migraine, history of celiac disease, history of colonic polyps, primary insomnia, who presents with fall. The patient lives alone in an apartment, but her daughter lives next door. She does not use any support for walking. She went to bathroom and she felt very dizzy and her bed is close to the bathroom and when she came out of the bathroom, she was feeling dizzy and she could not make up to the bed and she fell down on the face. No loss of consciousness. She was able to go to the phone and call her daughter and she was also able to open the door, able to ambulate after some time. She has some pain in the head. Denies any blurred visions, no earache, no runny nose, no sore throat, no cough, no loss of sense of smell or taste. Appetite is okay. No difficulty swallowing. The patient says since last Saturday she is having some intermittent sharp chest pains on and off, thought to be from gas problem and yesterday she slept in the day. Has some dry heaves. No abdominal pain, no diarrhea. She is somewhat constipated. No blood in the stool or black stools. She has some leaky bladder movements. Denies any hematuria. No swelling in the legs. No rash anywhere. Currently resting comfortably and hemodynamically stable. Principal Diagnosis Dizziness Fall Urinary tract infection Fracture of the alveolar maxillary process Electrolytes abnormality Chest discomfort. Hypertension Hyperlipidemia Gastroesophageal reflux disease Discharge Exam General- No acute distress Head- atraumatic Eyes- PERRL, EOMI, ENT- oropharynx clear, + laceration around right philtral area (above the lips), +frontal tooth tenderness Neck- supple, no JVD Lungs- clear to auscultation Heart- regular rhythm; no murmur Abdomen- normal bowel sounds, soft, nontender Extremities- no calf tenderness Neuro- alert, oriented x 3; PERRL, EOMI; no facial palsy; no dysarthria Skin- warm & dry Discharge Data Allergies Allergy/AdvReac Type Severity Reaction Status Date / Time Iodinated Contrast Media Allergy Unknown DEATLY SICK Unverified 11/27/20 01:39 Consultations 11/27/20 02:01 ED Decision to Admit Stat 11/27/20 03:40 Consult Case Management - Discharge Planning Routine 11/27/20 08:00 Consult Cardiology Routine 11/27/20 09:00 Consult Oromaxillofacial Surgery Routine Ordered Studies 11/27/20 00:45 CT cervical spine wo con Urgent CT facial bones wo con Urgent 11/27/20 00:46 CT head/brain wo con Urgent HEAD CT NONCONTRAST CT DOSE: 935.89 mGy.cm HISTORY: fall eval for injury TECHNIQUE: Multiaxial CT images of the head were performed without the use of intravenous contrast. Automated exposure control was utilized for this study. A dose lowering technique was utilized adhering to the principles of ALARA. Comparison: None. Findings: The paranasal sinuses and mastoid air cells are clear. The calvarium and skull base are intact. There is no mass, hematoma, midline shift, acute infarct. White matter hypodensity is nonspecific but suggestive of microvascular ischemic change. The ventricles and sulci demonstrate mild age-related involutional changes. Impression: No acute intracranial abnormality. ACT 112: Negative or not required by law. Electronically signed by: Victor Manuel Nagy M.D. 11/27/2020 7:46 AM Dictated: 11/27/20 0746Transcribed: 11/27/2046 XR chest 1V portable HISTORY: dizzy COMPARISON: Chest 11/19/2016. FINDINGS: Mild elevation of the left hemidiaphragm, unchanged. No pneumothorax. No pleural effusions. Old, healed left humeral neck fracture. The lungs are clear. The heart is normal in size. IMPRESSION: No acute process. ACT 112: Negative or not required by law. Electronically signed by: Victor Manuel Nagy M.D. 11/27/2020 8:40 AM Dictated: 11/27/20 0839Transcribed: 11/27/[address] DOSE: HISTORY: fall eval for injury TECHNIQUE: Multiaxial CT images of the maxillofacial region were performed and reformatted in the coronal plane without the use of contrast. A dose lowering technique was utilized adhering to the principles of ALARA. COMPARISON: None. FINDINGS: The visualized cervical spine, skull base, pterygoid plates, nasal bones, lamina papyracea, orbital floors, mandible, and zygomatic arches are intact. The central maxillary incisors are loose with small fractures involving the adjacent alveolar maxillary process. IMPRESSION: The central maxillary incisors are loose with small fractures involving the adjacent alveolar maxillary process. ACT 112: Negative or not required by law. Electronically signed by: Victor Manuel Nagy M.D. 11/27/2020 8:25 AM Dictated: 11/27/20 0822Transcribed: 11/27/[address] DOSE: HISTORY: fall eval for injury TECHNIQUE: Multiaxial CT images of the cervical spine were performed and r eformatted in the sagittal and coronal plane without the use of contrast. A dose lowering technique was utilized adhering to the principles of ALARA. COMPARISON: None. FINDINGS: No fractures. No subluxation. Prevertebral soft tissues and the C1-C2 interval are intact. No pneumothorax. There is 1 cm right thyroid nodule. IMPRESSION: No fractures within the cervical spine. ACT 112: Negative or not required by law. Electronically signed by: Victor Manuel Nagy M.D. 11/27/2020 8:16 AM Dictated: 11/27/20 0814Transcribed: 11/27/20 0814 Hospital Course (1) Dizziness: Fall Present on admission after a fall due to dizziness after using the toilet Possible related to vasovagal vs orthostatic CT head showed no acute intracranial abnormality CT face showed central maxillary incisors are loose with small fractures involving the adjacent alveolar maxillary process. Tele monitor showed no arrhythmia Cardiology consulted Echo showed mild concentric left ventricular hypertrophy. Grade 2 diastolic dysfunction. Ejection fraction 65 to 70%. Fall precaution PT/OT eval Will give a script for a walker on discharge Pt was advised pt not to drive for now until follow up with cardiology Cardiology or Provider will arrange 2 week ZIO monitor on discharge and cardio f/u in about 4 weeks to review monitor and BP. Continue monitor closely UTI Pt said that she has been having increase urinary frequency Urine cx grew gram negative bacilli Starting on Rocephin 1g IV Waiting for urine sensitivity to transition to PO abx (called the microbiology about sensitivity--Pending until tomorrow ) Since pt does not want to stay in the hospital for another night, will discharge on Keflex, then will follow urine cx and call her tomorrow if abx needs to change Discussed with daughter and agreed with the plan Fracture of the alveolar maxillary process Due to the fall Oral maxillofacial surgery consulted Called Dr. Hubbard office. Spoke to the midlevel Matilde. Dr. Hubbard's office never received the consult and [place]. Midlevel recommended to discuss the case to Dr. Pedroza Case discussed with Dr. Pedroza that recommended outpatient follow up with dentist or his office or Dr. Dimas's office Continue easy to chew diet or puree diet Electrolytes abnormality Potassium 3 and Mag 1.7 on admission K 3.7 today Continue K supplement Check BMP in 1 week Chest discomfort. EKG showed no ST changes Troponin negative x 2 Continue aspirin, carvedilol and statin ECHO showed no wall motion abnormality Currently asymptomatic Cardiology on board Stable Hypertension BP elevated this morning On home medication with Coreg, diltiazem, hydrochlorothiazide, losartan. HCTZ and Coreg decreased by half Hyperlipidemia Continue on pravastatin. Gastroesophageal reflux disease, Continue omeprazole. DVT px on SCD for now CODE STATUS FULL CODE Disposition Plan discharge home today Total Time Total Time Spent Total Time Spent (In Minutes): 35 minutes Total Time Includes: Examination of the Patient, Discharge Planning, Medication Reconciliation, Communication With Other Providers and Other Discharge Plan Discharge Items Patient Disposition: Home - Self-Care Reason For Visit: FALL Discharge Diagnosis: Dizziness Fall Urinary tract infection Fracture of the alveolar maxillary process Electrolytes abnormality Chest discomfort. Hypertension Hyperlipidemia Gastroesophageal reflux disease Activity: Resume your previous activity Non-emergency contact: Primary Care Provider Call non-emergency contact if: you have any medication questions Follow-up/Referrals: Darrius Zavala DO [Primary Care Provider] - (Date & Time 12/02/2020 12:00 PM Provider Joe Rodriges DO Department Family [facility] ) Diet: Heart Healthy Diet Texture: Easy to Chew Addtl Attending Provider Instructions: Follow up with Dr. Rodriges (Dr. Theodore's colleague) on 12/02/2020 at 12:00 PM Follow up with cardiology Dr. Rosario to arrange for the Zio patch monitor Follow up with your dentist or Oral maxillofacial surgery Dr. Christian Pedroza outpatient (please call to schedule for the follow up) Dr. Pedroza office : [address] [place] [address] Fall precaution Follow up with your primary care provider for the stitches removal Complete the course of the antibiotic with Keflex ( we will call you tomorrow if urine culture is resistance to Keflex ) No driving for now until you are OK (No dizziness) by your provider or cariology to drive Increase your potassium supplement in your diet Check BMP in 1 week to monitor your electrolytes Puree diet or easy to chew and advanced as tolerated Hydrochlorothiazide decreased to 12.5mg daily Coreg decreased to 12.5 mg twice a day Pending Studies at Discharge: Yes Visit Report Forms: Wound Care Instructions Stand-Alone Forms: [facility] [employer], Smoking Cessation Medications and DC Order Prescriptions: New carvedilol 12.5 mg Tablet 12.5 mg PO BID 30 Days Qty: 60 RF: 0 potassium chloride 10 mEq tablet extended release 10 meq PO DAILY Qty: 30 RF: 0 cephalexin 500 mg capsule 500 mg PO BID 5 Days Qty: 10 RF: 0 Continued losartan 50 mg tablet 50 mg PO QPM RF: 0 pravastatin 40 mg tablet 40 mg PO QPM RF: 0 diltiazem HCl 240 mg capsule,extended release 24hr 240 mg PO QAM RF: 0 lorazepam 0.5 mg tablet 0.5 mg PO HS PRN (Reason: Sleep) RF: 0 aspirin 81 mg Tablet,Delayed Release (Dr/Ec) 81 mg PO DAILY RF: 0 cyanocobalamin (vitamin B-12) [Vitamin B-12] 100 mcg Tablet 100 mcg PO DAILY RF: 0 omeprazole 20 mg capsule,delayed release(DR/EC) 20 mg PO QAM RF: 0 cholecalciferol (vitamin D3) [Vitamin D3] 25 mcg (1,000 unit) Tablet 25 mcg PO DAILY RF: 0 Changed hydrochlorothiazide 25 mg tablet 12.5 mg PO QAM 30 Days Qty: 15 RF: 0 Discontinued carvedilol 25 mg tablet 25 mg PO BID RF: 0 Discharge Orders: Discharge Order (Routine); Ordered 11/28/20 Ordered By: Guicho Dhillon Admission Data Admit Date/Time: 11/27/20 02:55 Attending Provider: Guicho Dhillon Admit Provider: Santy Downey Primary Care Provider: Darrius Zavala Other Providers: Santy Downey ; Gesron Spence ; Sidney Tobias ; Lane Tellez ; Fady Rosario ; Cale Humphries ; Gerald Tang ; Mariam Ramos ; Sarai Newsome ; Nitish Macdonald ; Librado Dimas Other Interventions: Discharge Summary Assessment (RN) Last Done: 11/28/20 17:54
== END 2020-11-28 18:20 | disposition home or self-care (01) ==
LOC: ED 00:34 → 2S 00:34

== ENCOUNTER 2025-07-31 12:59 | Inpatient (IN) ==
[2025-07-31] MEDS: OPTIRAY 320 125ml IV ONE (13:02)
[2025-07-31] MEDS: ONDANSETRON INJ 2 MG/ML 2 ML VIAL IV STA ×2 (13:03→13:56)
[2025-07-31] MEDS: FAMOTIDINE 20MG IV PUSH 20 MG/5 ML SYR IV STA (13:03)
[2025-07-31 13:21] LABS: Hematocrit (blood only) 38.4 % (37.0-47.0); Hemoglobin 13.1 g/dl (12.0-16.0); Immature Granulocytes # (auto) 0.05 K/uL (0.01-0.20); Immature Granulocytes % (auto) 0.4 %; Mean Corpuscular Hemoglobin 29.6 pg (25.0-34.0); Mean Corpuscular Volume 86.9 fL (80.0-100.0); Platelet Count 294 K/uL (130-400); RDW Standard Deviation 46.8 fL (36.4-46.3); Red Blood Count 4.42 M/uL (4.20-5.40); White Blood Count 12.05 K/ul (4.8-10.8)
--- NOTE | 2025-07-31 13:24 | CT Scan Report ---
CT SCAN OF THE BRAIN WITHOUT IV CONTRAST CLINICAL HISTORY: Neuro deficit. Acute stroke suspected. COMPARISON STUDY: Head CT November 27, 2020. TECHNIQUE: Unenhanced axial CT scan of the brain was performed from the vertex to the skull base. A dose lowering technique was utilized adhering to the principles of ALARA. FINDINGS: Brain parenchyma: This exam is mildly compromised by motion artifact. No acute intracranial hemorrhag e, midline shift or mass effect is present. Crowley-white matter differentiation is preserved. There are no extra-axial fluid collections. There are no findings to suggest acute dural sinus thrombosis or a cute territorial infarct. Ventricles, sulci, cisterns: There is no hydrocephalus. The basal cisterns are patent. Calvarium: Unremarkable. Sinuses and mastoids: The visualized paranasal sinuses are clear. The mastoid air cells are well pneu matized. Orbits: The bony orbits are grossly intact. IMPRESSION: No acute intracranial findings. Mild motion artifact. ACT 112: Negative or not required by law. Electronically signed by: Dallas Whalen M.D. 07/31/2025 1:22 PM
--- NOTE | 2025-07-31 13:27 | CT Scan Report ---
CT ANGIOGRAPHY OF THE NECK WITH CONTRAST CLINICAL HISTORY: neuro deficit, acute stroke suspected COMPARISON STUDY: Cervical spine CT November 27, 2020. Technique: CT angiography of the carotid and vertebral arteries was obtained using Optiray and 3D rec onstruction on an independent workstation. NASCET criteria was utilized. Automated exposure control was utilized for the study. A dose lowering technique was utilized adhering to the principles of ALA RA. Findings: Visualized lung apices are unremarkable. There is no cervical lymphadenopathy. No cervical spine fractures are present. There is moderate plaque within the proximal bilateral internal carotid arteries without stenosis. Irregularity of the distal cervical internal carotid arteries is likely du e to atherosclerosis. There is no dissection or aneurysm within the neck. The vertebral arteries are patent. IMPRESSION: No stenosis or dissection within the bilateral common carotid, cervical internal carotid or vertebral arteries. ACT 112: Negative or not required by law. Electronically signed by: Dallas Whalen M.D. 07/31/2025 1:25 PM
--- NOTE | 2025-07-31 13:31 | CT Scan Report ---
CTA ANGIOGRAPHY OF THE HEAD CLINICAL HISTORY: neuro deficit, acute stroke suspected COMPARISON STUDY: Head CT November 27, 2020. TECHNIQUE: Helical axial images of the head were obtained following uneventful intravenous administr ation of 112 cc of Optiray. Sagittal and coronal reconstructions were viewed as well as maximal inten sity projections on an independent 3-D workstation. Automated exposure control was utilized for the study. A dose lowering technique was utilized adhering to the principles of ALARA. CT DOSE: 1778.44 mGy.cm FINDINGS: Please note that the head CT will be reported separately. No acute intracranial hemorrhage, midline shift or mass effect is present. Ventricular system is unremarkable. Basal cisterns are jay nt. The bilateral M1, M2, A1 and A2 segments are patent. No large vessel occlusion is present. Fenest rated basilar artery is incidentally noted. The posterior circulation is intact. IMPRESSION: No large vessel occlusion. No intracranial aneurysm. ACT 112: Negative or not required by law. Electronically signed by: Dallas Whalen M.D. 07/31/2025 1:28 PM
[2025-07-31 13:38] LABS: Alanine Aminotransferase 14.0 U/L (7-52); Albumin Globulin Ratio 1.4 (0.9-2); Albumin Level 4.1 gm/dl (3.4-5.0); Alkaline Phosphatase 60.0 U/L (34-104); Anion Gap 11.0 (3-11); Bilirubin,Total 0.5 mg/dl (0.2-1.0); Blood Urea Nitrogen 13.0 mg/dl (6-23); Calcium 9.6 mg/dl (8.6-10.3); Carbon Dioxide 23.0 mmol/L (21-32); Chloride 99.0 mmol/L (98-107); Creatinine Clr Calc Pharmacy 55.7 ml/min; Globulin 3.0 gm/dl (2.5-4.0); Glucose 138.0 mg/dl (70-99(Fasting)); Magnesium 1.6 mg/dl (1.7-2.4); Potassium 3.6 mmol/L (3.5-5.1); Sodium 133.0 mmol/L (136-145); Total Protein 7.1 gm/dl (6.0-8.3)
--- NOTE | 2025-07-31 13:42 | Emergency Department Note ---
Impression & Plan AMS (altered mental status), Confusion, Leukocytosis ED Provider Note NAME: KERRI KING AGE: 84 SEX: F : 1940 ARRIVES VIA: Ambulance INFORMANT: Patient ED PROVIDER(S): Chris Bliss DO CHIEF COMPLAINT: Altered mental status HPI: Patient is an 84-year-old female who presents to the ER for headache. Per family who provide additional history she called them this morning around 10 AM that she started having a headache. She was having some vomiting with this. She also admits to some tailbone pain. Headache has gotten worse. EMS was called and they brought her in. She notes her headache has resolved now. Per EMS they note that she has become confused. Family also noted that they did see some shaking in all 4 extremities and following this she was confused. Patient denies any change or loss of vision. No chest pain or shortness of breath. No nausea vomiting or diarrhea. No dysuria, urgency or frequency. ADDITIONAL HISTORY OBTAINED: Per HPI Chronic Medical/Social Conditions Affecting Care: Per HPI PAST MEDICAL HISTORY:See Below PAST SURGICAL HISTORY:See Below FAMILY HISTORY:See Below SOCIAL HISTORY:See Below HOME MEDICATIONS:See Below ALLERGIES:See Below VITALS:See Below PHYSICAL EXAMINATION: GENERAL: Sitting up in bed, alert, slightly ill-appearing, dry heaving EYE EXAM: normal conjunctiva. PERRL and EOM's grossly intact. OROPHARYNX: no exudate, no erythema, lips, buccal mucosa, and tongue normal and mucous membranes are moist NECK: supple, no nuchal rigidity, no adenopathy, non-tender LUNGS: Clear to auscultation. Normal chest wall mechanics HEART: no murmurs, S1 normal and S2 normal ABDOMEN: abdomen soft, non-tender, normo-active bowel sounds, no masses, no rebound or guarding. BACK: Back is symmetrical on inspection and there is no deformity, no midline tenderness, no CVA tenderness. SKIN: no rashes and no bruising UPPER EXTREMITIES: upper extremities are grossly normal. LOWER EXTREMITIES: No pitting edema. NEURO EXAM: Oriented to person and place but not year, cranial nerves II-XII intact, normal speech, no weakness of arms, no weakness of legs. No drift. Finger to nose intact. Gross sensation intact. MEDICAL DECISION MAKING: Patient is a an 84-year-old female who presents ER for the above-stated complaint. IV was established and blood work was obtained. Stroke alert was called. Labs showed mild leukocytosis 12,000. No significant anemia. INR unremarkable. BMP with mild hyponatremia at 133. LFTs bilirubin was unremarkable. Mag slightly low at 1.6. Troponin negative. CT angios of the head and neck were negative. CT abdomen pelvis was negative. Neurology telestroke recommended no TNK today. Case was discussed with the hospitalist and patient will be mated for further workup. Concern for possible seizures with a history. Will hold on Keppra per the request of neurology. They recommended EEG and MRIs. Consults/Care Managements Discussions: Per [facility] Triage Nursing notes reviewed. Limited review of prior medical records performed Vital Signs: reviewed and remarkable for no significant abnormalities Differential diagnosis: Differential Diagnosis includes but is not limited to ischemic Stroke, hemorrhagic stroke, bells palsy, mass, neoplasm, migraine headache, seizure, subarachnoid hemorrhage, TIA, and transient global amnesia. ER treatment provided: See below Diagnostics interpreted by me include EKG and cardiac monitoring as listed below: -Cardiac Monitoring: An order was placed for continuous cardiac monitoring. The monitor shows a rate of 70 with paced rhythm. -ECG: Paced rhythm rate 79 Normal axis No PVCs T wave inversions in inferior leads QTc 440 -Laboratory studies:Interpreted by me as stated above in [facility] and shown below. Imaging studies: Xrays: As interpreted by me:none CTs show: CT of the head per my pleurae interpretation showed no obvious large bleed CT angios of the head neck and abdomen pelvis was negative per radiology Procedures:none Critical Care: None Past Med/Surg History Problem List (Updated 07/31/25 @ 15:18 by Chris Bliss DO) Leukocytosis (Acute) Confusion (Acute) AMS (altered mental status) (Acute) Facial bone fracture (Acute) Anxiety Hypertension (Chronic) Medical History Hypokalemia Dizziness Dental injury Facial laceration Acute hypokalemia Chest pain Syncope Social History Smoking Status: Never smoker Hx Alcohol Use: Yes Alcohol type: wine Hx Substance Use: No Preferred Language: Faroese Communication Ability: Effective Hand Endband Cutter Required: No Beliefs That Will Affect Care: None Current Living Situation: Alone current occupational status: retired Feels Safe at Home: Yes Assistive Devices: Glasses Allergies Allergies Allergy/AdvReac Type Severity Reaction Status Date / Time Iodinated Contrast Media Allergy Unknown DEATLY SICK Unverified 11/27/20 01:39 Home Meds Home Medications Medication Instructions Recorded Confirmed aspirin 81 mg tablet,delayed 81 mg PO DAILY 11/27/20 07/31/25 release cholecalciferol (vitamin D3) 25 25 mcg PO DAILY 11/27/20 07/31/25 mcg (1,000 unit) tablet (Vitamin D3) cyanocobalamin (vitamin B-12) 100 100 mcg PO DAILY 11/27/20 07/31/25 mcg tablet (Vitamin B-12) diltiazem HCl 240 mg 240 mg PO QAM 11/27/20 07/31/25 capsule,extended release 24 hr losartan 50 mg tablet 25 mg PO QAM 11/27/20 07/31/25 omeprazole 20 mg capsule,delayed 20 mg PO QAM 11/27/20 07/31/25 release pravastatin 40 mg tablet 40 mg PO QPM 11/27/20 07/31/25 carvedilol 12.5 mg tablet 12.5 mg PO BID 07/31/25 07/31/25 escitalopram oxalate 5 mg tablet 5 mg PO QPM 07/31/25 07/31/25 memantine 10 mg tablet 10 mg PO BID 07/31/25 07/31/25 potassium chloride 10 mEq 10 meq PO DAILY 07/31/25 07/31/25 tablet,extended release Previous Rx's Medication Instructions Recorded hydrochlorothiazide 25 mg tablet 12.5 mg (1/2 x 25 mg) PO QAM 30 11/28/20 days #15 tabs Results & Data (ED) Vital Signs Vital Signs - 24 hr 07/31/25 13:12 07/31/25 13:19 07/31/25 13:21 Pulse Rate 71 74 Pulse Rate [Apical] 67 Respiratory Rate 20 16 Blood Pressure 154/82 H Blood Pressure [Right Arm] 146/75 H Blood Pressure Mean 106 Blood Pressure Mean [Right Arm] 98 Pulse Oximetry 94 94 Oxygen Delivery Method Room Air Sepsis Recent Fever Within 48 Hours No Sepsis New/Unexplained Change in Mental Status No Sepsis Action Taken by Nursing No Action Required 07/31/25 14:00 07/31/25 14:00 Pulse Rate Pulse Rate [Apical] 67 67 Respiratory Rate 20 20 Blood Pressure Blood Pressure [Right Arm] 136/64 136/64 Blood Pressure Mean Blood Pressure Mean [Right Arm] 88 88 Pulse Oximetry 99 99 Oxygen Delivery Method Room Air Room Air Sepsis Recent Fever Within 48 Hours Sepsis New/Unexplained Change in Mental Status Sepsis Action Taken by Nursing Laboratory Data 07/31/25 12:57 07/31/25 12:57 Lab Results 07/31/25 07/31/25 Range/Units 12:57 14:43 WBC 12.05 H (4.8-10.8) K/ul RBC 4.42 (4.20-5.40) M/uL Hgb 13.1 (12.0-16.0) g/dl Hct 38.4 (37.0-47.0) % MCV 86.9 (80.0-100.0) fL MCH 29.6 (25.0-34.0) pg MCHC 34.1 (32.0-36.0) g/dL RDW Std Deviation 46.8 H (36.4-46.3) fL RDW Coeff of Mandy 14.6 H (11.5-14.5) % Plt Count 294 (130-400) K/uL MPV 10.2 (9.4-12.4) fL Immature Gran % (Auto) 0.4 % Neut % (Auto) 68.4 % Lymph % (Auto) 23.5 % Monroe % (Auto) 5.2 % Eos % (Auto) 2.2 % Baso % (Auto) 0.3 % Neut # (Auto) 8.24 H (1.40-6.50) K/uL Lymph # (Auto) 2.83 (1.20-3.40) K/uL Monroe # (Auto) 0.63 H (0.11-0.59) K/uL Eos # (Auto) 0.26 (0.00-0.50) K/uL Baso # (Auto) 0.04 (0.00-0.20) K/uL Immature Gran # (Auto) 0.05 (0.01-0.20) K/uL PT 10.3 (9.0-12.0) Seconds INR 1.0 (0.9-1.1) APTT 24 (21-31) Seconds PTT Ratio 0.9 Sodium 133 L (136-145) mmol/L Potassium 3.6 (3.5-5.1) mmol/L Chloride 99 (98-107) mmol/L Carbon Dioxide 23 (21-32) mmol/L Anion Gap 11 (3-11) BUN 13 (6-23) mg/dl Creatinine 0.76 (0.6-1.2) mg/dl Est Cr Clr Drug Dosing 55.7 ml/min eGFR 78.19 BUN/Creatinine Ratio 17.1 (10-20) Glucose 138 H (70-99(Fasting)) mg/dl Lactate 1.3 (0.4-2.0) mmol/L Calcium 9.6 (8.6-10.3) mg/dl Magnesium 1.6 L (1.7-2.4) mg/dl Total Bilirubin 0.5 (0.2-1.0) mg/dl AST 20 (13-39) U/L ALT 14 (7-52) U/L Alkaline Phosphatase 60 (34-104) U/L Troponin I High Sens 4.2 (0-14) pg/ml Total Protein 7.1 (6.0-8.3) gm/dl Albumin 4.1 (3.4-5.0) gm/dl Globulin 3.0 (2.5-4.0) gm/dl Albumin/Globulin Ratio 1.4 (0.9-2) Administered Medications Magnesium Sulfate/Dextrose (Magnesium Sulfate / D5w) 1 gm in 100 mls @ 100 mls/hr IV Q1H KRISTEN Stop: 07/31/25 16:15 Last Admin: 07/31/25 14:39 Dose: 100 mls/hr Documented By: darryn Discontinued Medications Famotidine (Pepcid 20mg Iv Push) 20 mg in 5 mls @ 2.5 mls/min IV NOW STA Stop: 07/31/25 12:52 Last Admin: 07/31/25 13:03 Dose: 2.5 mls/min Documented By: GARTH Promethazine HCl (Phenergan) 6.25 mg in 50.25 mls @ 201 mls/hr IV NOW STA Stop: 07/31/25 13:54 Last Infusion: 07/31/25 14:46 Dose: Infused Documented By: darryn Admin: 07/31/25 14:16 Dose: 201 mls/hr Documented By: darryn Ioversol (Optiray 320 125ml) 112 ml IV ONCE ONE Stop: 07/31/25 13:02 Last Admin: 07/31/25 13:02 Dose: 112 ml Documented By: JAYDEN Methylprednisolone (Methylprednisolone 125 Mg/2 Ml Vial) 125 mg IV NOW STA Stop: 07/31/25 12:52 Last Admin: 07/31/25 13:37 Dose: 125 mg Documented By: GARTH Metoclopramide HCl (Metoclopramide Hcl Inj 5 Mg/Ml 2 Ml Vial) 10 mg IV NOW STA Stop: 07/31/25 13:11 Last Admin: 07/31/25 13:56 Dose: 10 mg Documented By: JOSE Ondansetron HCl (Ondansetron Inj 2 Mg/Ml 2 Ml Vial) 4 mg IV NOW STA Stop: 07/31/25 12:52 Last Admin: 07/31/25 13:03 Dose: 4 mg Documented By: GARTH Ondansetron HCl (Ondansetron Inj 2 Mg/Ml 2 Ml Vial) 4 mg IV NOW STA Stop: 07/31/25 13:19 Last Admin: 07/31/25 13:56 Dose: 4 mg Documented By: JOSE Imaging Data Radiologist's Impression: Head CT 07/31/25 12:51 CT SCAN OF THE BRAIN WITHOUT IV CONTRAST CLINICAL HISTORY: Neuro deficit. Acute stroke suspected. COMPARISON STUDY: Head CT November 27, 2020. TECHNIQUE: Unenhanced axial CT scan of the brain was performed from the vertex to the skull base. A dose lowering technique was utilized adhering to the principles of ALARA. FINDINGS: Brain parenchyma: This exam is mildly compromised by motion artifact. No acute intracranial hemorrhage, midline shift or mass effect is present. Crowley-white matter differentiation is preserved. There are no extra-axial fluid collections. There are no findings to suggest acute dural sinus thrombosis or acute territorial infarct. Ventricles, sulci, cisterns: There is no hydrocephalus. The basal cisterns are patent. Calvarium: Unremarkable. Sinuses and mastoids: The visualized paranasal sinuses are clear. The mastoid air cells are well pneumatized. Orbits: The bony orbits are grossly intact. IMPRESSION: No acute intracranial findings. Mild motion artifact. ACT 112: Negative or not required by law. Electronically signed by: Dallas Whalen M.D. 07/31/2025 1:22 PM Head CTA 07/31/25 12:51 CTA ANGIOGRAPHY OF THE HEAD CLINICAL HISTORY: neuro deficit, acute stroke suspected COMPARISON STUDY: Head CT November 27, 2020. TECHNIQUE: Helical axial images of the head were obtained following uneventful intravenous administration of 112 cc of Optiray. Sagittal and coronal reconstructions were viewed as well as maximal intensity projections on an independent 3-D workstation. Automated exposure control was utilized for the study. A dose lowering technique was utilized adhering to the principles of ALARA. CT DOSE: 1778.44 mGy.cm FINDINGS: Please note that the head CT will be reported separately. No acute intracranial hemorrhage, midline shift or mass effect is present. Ventricular system is unremarkable. Basal cisterns are patent. The bilateral M1, M2, A1 and A2 segments are patent. No large vessel occlusion is present. 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 The posterior circulation is intact. IMPRESSION: No large vessel occlusion. No intracranial aneurysm. ACT 112: Negative or not required by law. Electronically signed by: Dallas Whalen M.D. 07/31/2025 1:28 PM Neck CTA 07/31/25 12:51 CT ANGIOGRAPHY OF THE NECK WITH CONTRAST CLINICAL HISTORY: neuro deficit, acute stroke suspected COMPARISON STUDY: Cervical spine CT November 27, 2020. Technique: CT angiography of the carotid and vertebral arteries was obtained using Optiray and 3D reconstruction on an independent workstation. NASCET criteria was utilized. Automated exposure control was utilized for the study. A dose lowering technique was utilized adhering to the principles of ALARA. Findings: Visualized lung apices are unremarkable. There is no cervical lymphadenopathy. No cervical spine fractures are present. There is moderate plaque within the proximal bilateral internal carotid arteries without stenosis. Irregularity of the distal cervical internal carotid arteries is likely due to atherosclerosis. There is no dissection or aneurysm within the neck. The vertebral arteries are patent. IMPRESSION: No stenosis or dissection within the bilateral common carotid, cervical internal carotid or vertebral arteries. ACT 112: Negative or not required by law. Electronically signed by: Dallas Whalen M.D. 07/31/2025 1:25 PM Abdomen/Pelvis CT 07/31/25 13:42 CT OF THE ABDOMEN AND PELVIS WITHOUT CONTRAST CLINICAL HISTORY: Nausea and vomiting. COMPARISON STUDY: No previous studies for comparison. TECHNIQUE: Axial images of the abdomen and pelvis were obtained without IV contrast. Images were reviewed in the axial, sagittal, and coronal planes. Automated exposure control was utilized for the study. A dose lowering technique was utilized adhering to the principles of ALARA. FINDINGS: This exam is mildly compromised by motion artifact. Incidental note is made of intravascular contrast from recent contrast-enhanced CT. Pacer leads are partially imaged. No pneumatosis, free air or portal venous gas is present. Liver, spleen, adrenal glands, right kidney and pancreas are unremarkable with the exception of pancreatic glandular atrophy. Low-attenuation left renal lesions represent cysts. There is excreted contrast within the collecting systems, ureters and bladder. There is no hydronephrosis. There is no evidence for a bowel obstruction. A moderate amount of stool within the rectum is noted. There is colonic diverticulosis. No evidence for acute diverticulitis. Right lower quadrant small bowel anastomosis is noted. There is no lymphadenopathy. No fluid collections are present. No acute fractures within the lumbar spine, pelvis or hips are identified IMPRESSION: 1. Mild motion artifact. No acute findings within the abdomen or pelvis. 2. Extensive colonic diverticulosis. No evidence for acute diverticulitis. 3. No bowel obstruction. 4. Moderate amount of stool within the rectum. 5. Several left renal cysts. ACT 112: Negative or not required by law. Electronically signed by: Dallas Whalen M.D. 07/31/2025 2:06 PM Discharge Plan Visit Data Chief Complaint: Stroke Alert Stated Complaint: STROKE ALERT ED Provider: Chris Bliss Discharge Problem: AMS (altered mental status), Confusion, Leukocytosis Condition: Serious Forms Stand Alone Forms: My [facility] [place] [employer] Prescriptions Prescriptions: No Action losartan 50 mg tablet 25 mg PO QAM pravastatin 40 mg tablet 40 mg PO QPM diltiazem HCl 240 mg capsule,extended release 24hr 240 mg PO QAM aspirin 81 mg Tablet,Delayed Release (Dr/Ec) 81 mg PO DAILY Patient Comments: cyanocobalamin (vitamin B-12) [Vitamin B-12] 100 mcg Tablet 100 mcg PO DAILY Patient Comments: omeprazole 20 mg capsule,delayed release(DR/EC) 20 mg PO QAM cholecalciferol (vitamin D3) [Vitamin D3] 25 mcg (1,000 unit) Tablet 25 mcg PO DAILY Patient Comments: hydrochlorothiazide 25 mg tablet 12.5 mg PO QAM 30 Days Qty: 15 0RF carvedilol 12.5 mg tablet 12.5 mg PO BID memantine 10 mg tablet 10 mg PO BID potassium chloride 10 mEq tablet extended release 10 meq PO DAILY escitalopram oxalate 5 mg tablet 5 mg PO QPM Referrals Referrals: Darrius Zavala DO [Primary Care Provider] - Discharge Problem: AMS (altered mental status) Qualifiers: Altered mental status type: unspecified Qualified Code(s): R41.82 - Altered mental status, unspecified Leukocytosis Qualifiers: Leukocytosis type: unspecified Qualified Code(s): D72.829 - Elevated white blood cell count, unspecified
[2025-07-31 13:48] LABS: INR 1.0 (0.9-1.1); Partial Thromboplastin Time 24 Seconds (21-31); Prothrombin Time 10.3 Seconds (9.0-12.0)
[2025-07-31] MEDS: METOCLOPRAMIDE HCL INJ 5 MG/ML 2 ML VIAL IV STA (13:56)
--- NOTE | 2025-07-31 14:04 | History & Physical Report ---
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 Arrived to ED via EMS at 13:00 from home as a stroke alert. Pt called granddaughter around 10:30 with c/o headache which she noted being the "worst headache of her life." Was given Excedrin and lied back down on couch. Shortly after doing so, pt started to violently shake. Shaking involved all four extremities and lasted anywhere from 1-2 minutes. Following this, pt was acting extremely confused, weak, slurring her words, vomiting and had a questionable R-sided facial droop. #Seizure-like activity with Maximiliano's paralysis vs. TIA/CVA In ED, pt was initially A&O only to self Head CT, head CTA and neck CTA all grossly unremarkable, BSG WNL Pt seen by telestroke neurology: suspect seizure activity > TIA/CVA, recommended obtaining EEG and brain MRI; advised to hold off on AEDs at this time Pt's mental status slowly returned back to baseline in the ED A&Ox3 at the time of my eval shortly after 14:00, unable to recall the above events Some weakness appreciated but similar in all extremities, minimal if any R lip drooping on exam but otherwise speech clear Brain MRI, EEG ordered and pending Appreciate neuro consult for further recs Check TTE, AM lipid panel/A1c as part of stroke w/u Allow for permissive HTN given c/f possible TIA vs. CVA Check UA; mild leukocytosis appreciated RVP, TSH, RPR pending #Hypomagnesemia Repleted via IV, continue to monitor and replete PRN #Hyponatremia Na 133 on admission Check routine hypoNa w/u including serum osm, urine osm, urine Na #Sacral pain s/p mechanical fall 2wk ago CTAP without any acute findings PT/OT evals pending, PRN analgesia #Several left renal cysts Incidentally noted on CTAP, recommend further OP eval #Dementia Appears quite mild, some slowed cognition observed during conversation but otherwise A&Ox3 Continue memantine #HTN Hold home antihypertensives, including HCTZ, for now to allow for permissive HTN #Palpitations 2/2 sensed atrial ectopy #Sinus 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 Calles. Please see addendum. I spent a total of 76 minutes coordinating, documenting, and providing care for this patient excluding time spent in the performance of separately billed services or time spent by another provider/QHP. This included personally reviewing all current laboratories and imaging studies, medical reconciliation, outpatient chart review and discussion with specialists. This chart was completed in part utilizing Speech Voice Recognition Software. Grammatical errors, random word insertions, pronoun errors, and incomplete sentences are an occasional consequence of this system due to software limitations, ambient noise, and hardware issues. Any formal questions or concerns about the content, text, or information contained within the body of this dictation should be directly addressed to the provider for clarification. 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 History primarily obtained from the patient's family at bedside, discussion with ED provider and associated chart review. Arrived to ED via EMS at 13:00 from home as a stroke alert. Patient called her granddaughter around 10:30 with c/o headache which she noted being the "worst headache of her life." Had asked her to bring her Excedrin over. Patient currently lives alone, however her granddaughter and her significant other live right next door. Her granddaughter and [id number] went over next door to give her the medication shortly following that phone call. They gave her the Excedrin and the patient lied back down on her couch. Shortly after doing so, the patient started to violently shake. This involved all four extremities and lasted anywhere from 1-2 minutes. Following this, the patient was acting extremely confused, slurring her words and had a questionable right-sided facial droop. She also had several bouts of vomiting after the shaking subsided. EMS was then called. According to her granddaughter, the patient had another bout of "full body shaking" while EMS was evaluating her. She continued to having vomiting, slurred speech, confusion and slight right-sided facial drooping as well. In ED, patient was initially A&O only to self. Emergent head CT was completed which revealed no acute intracranial findings. Head and neck CTA were also completed as part of the stroke protocol which were also grossly unremarkable. BSG WNL. Patient was seen and evaluated by telestroke neurology. Suspect seizure activity, recommended brain MRI and EEG. Advised to hold off on AEDs at this time pending seizure workup. Patient's mental status slowly returned back to baseline in the ED. Cognitive slowing but otherwise A&Ox4 at the time of my evaluation shortly after 14:00. Unable to recall the above events. Allergies Allergy/AdvReac Type Severity Reaction Status Date / Time Iodinated Contrast Media Allergy Unknown DEATLY SICK Unverified 11/27/20 01:39 Home Medications Medication Instructions Recorded Confirmed Type aspirin 81 mg tablet,delayed 81 mg PO DAILY 11/27/20 07/31/25 History release cholecalciferol (vitamin D3) 25 25 mcg PO DAILY 11/27/20 07/31/25 History mcg (1,000 unit) tablet (Vitamin D3) cyanocobalamin (vitamin B-12) 100 100 mcg PO DAILY 11/27/20 07/31/25 History mcg tablet (Vitamin B-12) diltiazem HCl 240 mg 240 mg PO QAM 11/27/20 07/31/25 History capsule,extended release 24 hr losartan 50 mg tablet 25 mg PO QAM 11/27/20 07/31/25 History omeprazole 20 mg capsule,delayed 20 mg PO QAM 11/27/20 07/31/25 History release pravastatin 40 mg tablet 40 mg PO QPM 11/27/20 07/31/25 History hydrochlorothiazide 25 mg tablet 12.5 mg (1/2 x 25 mg) PO QAM 30 11/28/20 07/31/25 Rx days #15 tabs carvedilol 12.5 mg tablet 12.5 mg PO BID 07/31/25 07/31/25 History escitalopram oxalate 5 mg tablet 5 mg PO QPM 07/31/25 07/31/25 History memantine 10 mg tablet 10 mg PO BID 07/31/25 07/31/25 History potassium chloride 10 mEq 10 meq PO DAILY 07/31/25 07/31/25 History tablet,extended release Past Med/Surg History Problem List (Updated 07/31/25 @ 15:56 by Reshma Edward PA-C) Stroke-like episode Seizure-like activity Leukocytosis (Acute) Confusion (Acute) AMS (altered mental status) (Acute) Facial bone fracture (Acute) Anxiety Hypertension (Chronic) Medical History Hypokalemia Dizziness Dental injury Facial laceration Acute hypokalemia Chest pain Syncope Social History Smoking Status: Never smoker Second Hand Exposure: No; Do You Dip or Chew Tobacco: No; Tobacco Cessation Education Requested by Patient: No Hx Alcohol Use: No Hx Substance Use: No Preferred Language: [place] Communication Ability: Effective Hardness Inspector Required: No Beliefs That Will Affect Care: None Current Living Situation: Alone Current Living Situation Comment: Grandkids live next door current occupational status: retired Other Information That Helps Us Care for You: No Feels Safe at Home: Yes Safety Concerns: Feels Safe At This Time Assistive Devices: Glasses and Walker Review of Systems Review of Systems: At least ten systems reviewed and negative, except as noted in the HPI. Physical Exam Physical Exam: General/Neuro: Elderly D, NAD, laying down in bed, A&Ox3. Family at bedside. HEENT: Normocephalic, atraumatic. Oropharynx normal, questionable R-sided lip drooping. Respiratory: Normal respiratory effort, CTAB. Cardiovascular: RRR, normal peripheral pulses, no BLE edema. Abdomen/GI: Normal bowel sounds, soft, nontender to palpation in all quadrants. Extremities/Musculoskeletal: No cyanosis or clubbing, weakness appreciated throughout but generally equal in all extremities, actively moves all extremities. Results & Data Results & Data Vital Signs (Past 12 Hours) Vital Signs Pulse Pulse Resp BP BP Pulse Ox O2 Del Method 07/31/25 13:21 67 16 146/75 H 94 07/31/25 13:19 74 07/31/25 13:12 71 20 154/82 H 94 Room Air Laboratory Results Short CBC 07/31/25 Range/Units 12:57 WBC 12.05 H (4.8-10.8) K/ul Hgb 13.1 (12.0-16.0) g/dl Hct 38.4 (37.0-47.0) % Plt Count 294 (130-400) K/uL BMP 07/31/25 12:57 Sodium 133 L Potassium 3.6 Chloride 99 Carbon Dioxide 23 BUN 13 Creatinine 0.76 Glucose 138 H Calcium 9.6 Liver Function 07/31/25 Range/Units 12:57 Total Bilirubin 0.5 (0.2-1.0) mg/dl AST 20 (13-39) U/L ALT 14 (7-52) U/L Alkaline Phosphatase 60 (34-104) U/L Albumin 4.1 (3.4-5.0) gm/dl Diagnostic Findings Head CT 07/31/25 12:51 CT SCAN OF THE BRAIN WITHOUT IV CONTRAST CLINICAL HISTORY: Neuro deficit. Acute stroke suspected. COMPARISON STUDY: Head CT November 27, 2020. TECHNIQUE: Unenhanced axial CT scan of the brain was performed from the vertex to the skull base. A dose lowering technique was utilized adhering to the principles of ALARA. FINDINGS: Brain parenchyma: This exam is mildly compromised by motion artifact. No acute intracranial hemorrhage, midline shift or mass effect is present. Crowley-white matter differentiation is preserved. There are no extra-axial fluid collections. There are no findings to suggest acute dural sinus thrombosis or acute territorial infarct. Ventricles, sulci, cisterns: There is no hydrocephalus. The basal cisterns are patent. Calvarium: Unremarkable. Sinuses and mastoids: The visualized paranasal sinuses are clear. The mastoid air cells are well pneumatized. Orbits: The bony orbits are grossly intact. IMPRESSION: No acute intracranial findings. Mild motion artifact. ACT 112: Negative or not required by law. Electronically signed by: Dallas Whalen M.D. 07/31/2025 1:22 PM Head CTA 07/31/25 12:51 CTA ANGIOGRAPHY OF THE HEAD CLINICAL HISTORY: neuro deficit, acute stroke suspected COMPARISON STUDY: Head CT November 27, 2020. TECHNIQUE: Helical axial images of the head were obtained following uneventful intravenous administration of 112 cc of Optiray. Sagittal and coronal reconstructions were viewed as well as maximal intensity projections on an independent 3-D workstation. Automated exposure control was utilized for the study. A dose lowering technique was utilized adhering to the principles of ALARA. CT DOSE: 1778.44 mGy.cm FINDINGS: Please note that the head CT will be reported separately. No acute intracranial hemorrhage, midline shift or mass effect is present. Ventricular system is unremarkable. Basal cisterns are patent. The bilateral M1, M2, A1 and A2 segments are patent. No large vessel occlusion is present. 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 The posterior circulation is intact. IMPRESSION: No large vessel occlusion. No intracranial aneurysm. ACT 112: Negative or not required by law. Electronically signed by: Dallas Whalen M.D. 07/31/2025 1:28 PM Neck CTA 07/31/25 12:51 CT ANGIOGRAPHY OF THE NECK WITH CONTRAST CLINICAL HISTORY: neuro deficit, acute stroke suspected COMPARISON STUDY: Cervical spine CT November 27, 2020. Technique: CT angiography of the carotid and vertebral arteries was obtained using Optiray and 3D reconstruction on an independent workstation. NASCET criteria was utilized. Automated exposure control was utilized for the study. A dose lowering technique was utilized adhering to the principles of ALARA. Findings: Visualized lung apices are unremarkable. There is no cervical lymphadenopathy. No cervical spine fractures are present. There is moderate plaque within the proximal bilateral internal carotid arteries without stenosis. Irregularity of the distal cervical internal carotid arteries is likely due to atherosclerosis. There is no dissection or aneurysm within the neck. The vertebral arteries are patent. IMPRESSION: No stenosis or dissection within the bilateral common carotid, cervical internal carotid or vertebral arteries. ACT 112: Negative or not required by law. Electronically signed by: Dallas Whalen M.D. 07/31/2025 1:25 PM Medications Administered Discontinued Medications Famotidine (Pepcid 20mg Iv Push) 20 mg in 5 mls @ 2.5 mls/min IV NOW STA Stop: 07/31/25 12:52 Last Admin: 07/31/25 13:03 Dose: 2.5 mls/min Documented By: GARTH Ioversol (Optiray 320 125ml) 112 ml IV ONCE ONE Stop: 07/31/25 13:02 Last Admin: 07/31/25 13:02 Dose: 112 ml Documented By: JAYDEN Methylprednisolone (Methylprednisolone 125 Mg/2 Ml Vial) 125 mg IV NOW STA Stop: 07/31/25 12:52 Last Admin: 07/31/25 13:37 Dose: 125 mg Documented By: GARTH Metoclopramide HCl (Metoclopramide Hcl Inj 5 Mg/Ml 2 Ml Vial) 10 mg IV NOW STA Stop: 07/31/25 13:11 Last Admin: 07/31/25 13:56 Dose: 10 mg Documented By: JOSE Ondansetron HCl (Ondansetron Inj 2 Mg/Ml 2 Ml Vial) 4 mg IV NOW STA Stop: 07/31/25 12:52 Last Admin: 07/31/25 13:03 Dose: 4 mg Documented By: GARTH Ondansetron HCl (Ondansetron Inj 2 Mg/Ml 2 Ml Vial) 4 mg IV NOW STA Stop: 07/31/25 13:19 Last Admin: 07/31/25 13:56 Dose: 4 mg Documented By: JOSE Supervising Physician Co-Signing Physician Notes Patient seen and examined at bedside. Patient doing ok today. States she has nausea, vomiting, headache, fatigue, weakness. Has had these episodes before but not this bad. Slurring words during episode, mild bilateral shakes, does not remember anything, possible right sided facial droop. On exam, NIHSS of 0, cognitive slowing noted but alert and orriented x3. Mild leukocytosis noted, Na of 133 slightly below patient baseline, creatinine at baseline, Mg of 1.6 replenished. Imaging notable for constipation. Presentation concerning for seizure like activity with Todds paralysis vs. TIA/stroke, less likely arrhythmia or vasovagal syncope. Given concern for right facial droop on arrival, will treat as potential stroke and utilize stroke order set. -Check MR head w/ and w/o contrast given concern for seizure activity, neurology consult appreciate recs -check phos, RPR, TSH, urinalysis to finish metabolic workup -check echo, telemetry -permissive HTN for now given concern for TIA vs. stroke -check viral panel I have seen and discussed the case with the collaborating advanced practitioner. I agree with the above H&P. I have reviewed and confirmed the patients medical history, the findings on physical examination, and the patients diagnosis and treatment plan with Cheyanne HUDSON and agree with the information documented. I spent a total of 40 minutes coordinating, documenting, and providing care for this patient excluding time spent in the performance of separately billed services. All of the aforementioned completed outside of collaborating with the assigned advanced practitioner for a full treatment plan. I have reviewed the advanced practitioner's documentation, and I agree with, and take responsibility for the plan of care
--- NOTE | 2025-07-31 14:08 | CT Scan Report ---
CT OF THE ABDOMEN AND PELVIS WITHOUT CONTRAST CLINICAL HISTORY: Nausea and vomiting. COMPARISON STUDY: No previous studies for comparison. TECHNIQUE: Axial images of the abdomen and pelvis were obtained without IV contrast. Images were revi ewed in the axial, sagittal, and coronal planes. Automated exposure control was utilized for the debbie dy. A dose lowering technique was utilized adhering to the principles of ALARA. FINDINGS: This exam is mildly compromised by motion artifact. Incidental note is made of intravascula r contrast from recent contrast-enhanced CT. Pacer leads are partially imaged. No pneumatosis, free a ir or portal venous gas is present. Liver, spleen, adrenal glands, right kidney and pancreas are unre markable with the exception of pancreatic glandular atrophy. Low-attenuation left renal lesions repre sent cysts. There is excreted contrast within the collecting systems, ureters and bladder. There is n o hydronephrosis. There is no evidence for a bowel obstruction. A moderate amount of stool within the rectum is noted. There is colonic diverticulosis. No evidence for acute diverticulitis. Right lower quadrant small bowel anastomosis is noted. There is no lymphadenopathy. No fluid collections are pres ent. No acute fractures within the lumbar spine, pelvis or hips are identified IMPRESSION: 1. Mild motion artifact. No acute findings within the abdomen or pelvis. 2. Extensive colonic diverticulosis. No evidence for acute diverticulitis. 3. No bowel obstruction. 4. Moderate amount of stool within the rectum. 5. Several left renal cysts. ACT 112: Negative or not required by law. Electronically signed by: Dallas Whalen M.D. 07/31/2025 2:06 PM
[2025-07-31] MEDS: PROMETHAZINE 6.25 MG/50.25 ML BAG IV STA (14:16)
[2025-07-31] MEDS: MAGNESIUM SULFATE / D5W 1 GM/100 ML BAG IV SCH (14:30)
[2025-07-31] MEDS ORDERED: ONDANSETRON INJ 2 MG/ML 2 ML VIAL IV PRN ×2 (14:43→17:25)
[2025-07-31 16:02] LABS: Thyroid Stimulating Hormone 1.239 uIu/ml (0.300-4.500)
[2025-07-31] MEDS ORDERED: SODIUM PHOSPHATE 3 MMOL/1 ML INFUSION IV STA (17:11)
--- NOTE | 2025-07-31 17:12 | XCELERA ---
[id number]
[2025-07-31] MEDS ORDERED: PHARMACIST DISCHARGE MED REC CONSULT PRN (17:25)
[2025-07-31] MEDS ORDERED: MAGNESIUM HYDROXIDE SUSP 30 ML UDC PO PRN (17:25)
[2025-07-31] MEDS: SODIUM PHOSPHATE 12 MMOL in SODIUM CHLORIDE 0.9% 250 ML IV ONE (18:01)
[2025-07-31 19:09] LABS: Chlamydia pneumoniae PCR Not Detected (NotDetected); Coronavirus 229E PCR Not Detected (NotDetected); Coronavirus CoV-2 (COVID19)PCR Not Detected (NotDetected); Coronavirus HKU1 PCR Not Detected (NotDetected); Coronavirus NL63 PCR Not Detected (NotDetected); Coronavirus OC43PCR Not Detected (NotDetected); Human Metapneumovirus PCR Not Detected (NotDetected); Parainfluenza Virus 1 PCR Not Detected (NotDetected); Parainfluenza Virus 2 PCR Not Detected (NotDetected); Parainfluenza Virus 3 PCR Not Detected (NotDetected); Parainfluenza Virus 4 PCR Not Detected (NotDetected); Respiratory Syncytial VirusPCR Not Detected (NotDetected); Rhinovirus/Enterovirus PCR Not Detected (NotDetected)
[2025-07-31] MEDS: PRAVASTATIN SOD 40 MG TAB PO SCH (21:20)
[2025-07-31] MEDS: ESCITALOPRAM OXALATE 10 MG TAB PO SCH (21:21)
[2025-07-31] MEDS: MEMANTINE HCL 10 MG TAB PO SCH (21:21)
[2025-07-31] MEDS: MELATONIN 3 MG TAB PO PRN (21:32)
[2025-08-01 08:16] LABS: Hematocrit (blood only) 37.7 % (37.0-47.0); Hemoglobin 12.5 g/dl (12.0-16.0); Immature Granulocytes # (auto) 0.03 K/uL (0.01-0.20); Immature Granulocytes % (auto) 0.3 %; Mean Corpuscular Hemoglobin 29.1 pg (25.0-34.0); Mean Corpuscular Volume 87.9 fL (80.0-100.0); Platelet Count 288 K/uL (130-400); RDW Standard Deviation 46.8 fL (36.4-46.3); Red Blood Count 4.29 M/uL (4.20-5.40); White Blood Count 8.67 K/ul (4.8-10.8)
[2025-08-01 08:36] LABS: Hemoglobin A1C 5.8 % (4.5-5.6)
[2025-08-01] MEDS: ASPIRIN 81 MG ECTAB PO SCH (08:36)
[2025-08-01] MEDS: CYANOCOBALAMIN (B-12) 100 MCG TABLET PO SCH (08:36)
[2025-08-01] MEDS: CHOLECALCIFEROL 25 MCG (1000 UNITS) TAB PO SCH (08:36)
[2025-08-01 08:41] LABS: Anion Gap 10.0 (3-11); Blood Urea Nitrogen 13.0 mg/dl (6-23); Calcium 9.4 mg/dl (8.6-10.3); Carbon Dioxide 26.0 mmol/L (21-32); Chloride 98.0 mmol/L (98-107); Cholesterol 160.0 mg/dl (0-200); Creatinine Clr Calc Pharmacy 45.1 ml/min; Glucose 121.0 mg/dl (70-99(Fasting)); HDL Cholesterol 58.0 mg/dl; Magnesium 2.1 mg/dl (1.7-2.4); Potassium 3.5 mmol/L (3.5-5.1); Sodium 134.0 mmol/L (136-145); Triglycerides 71.0 mg/dl (0-150)
--- NOTE | 2025-08-01 09:01 | Hospitalist Progress Note ---
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 Arrived to ED via EMS at 13:00 from home as a stroke alert. Pt called granddaughter around 10:30 with c/o headache which she noted being the "worst headache of her life." Was given Excedrin and lied back down on couch. Shortly after doing so, pt started to violently shake. Shaking involved all four extremities and lasted anywhere from 1-2 minutes. Following this, pt was acting extremely confused, weak, slurring her words, vomiting and had a questionable R-sided facial droop. #Seizure-like activity with Maximiliano's paralysis vs. TIA/CVA Head CT, head CTA and neck CTA all grossly unremarkable, BSG WNL Pt seen by telestroke neurology: suspect seizure activity > TIA/CVA, recommended obtaining EEG and brain MRI; advised to hold off on AEDs at this time Pt's mental status slowly returned back to baseline in the ED Echocardiogram shows EF of 60 to 65%; interatrial septum is intact without evidence of ASD's, PFO Continue on aspirin, Lipitor. Continue to hold other antihypertensives other than Coreg. MRI brain pending; most likely tomorrow given patient has history of pacemaker Plan to obtain EEG Seizure precautions #Sacral pain s/p mechanical fall 2wk ago Patient reports feeling dizzy recently leading up to multiple falls. Will continue to hold her antihypertensives(hydrochlorothiazide, losartan, Cardizem); discontinue them if her blood pressure continues to be stable at discharge CTAP without any acute findings PT/OT evals pending, PRN analgesia #Hypomagnesemia- repleted #Hyponatremia- likely due to HCTZ; stop at DC #Several left renal cysts Incidentally noted on CTAP, recommend further OP eval #Dementia Appears quite mild, some slowed cognition observed during conversation but otherwise A&Ox3 Continue memantine #HTN Hold home antihypertensives, including HCTZ, for now to allow for permissive HTN #Palpitations 2/2 sensed atrial ectopy #Sinus 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 Continue BB uninterrupted for now #HLD Continue statin and ASA, Other chronic medical conditions: GERD - Continue PPI Anxiety/depression - Continue Lexapro DVT Prophylaxis: SCDs/TEDs only for now Code Status: DNR/DNI PCP: Darrius Zavala, Disposition: Admit to med/telemetry Time spent evaluating patient, direct bedside care, chart review, placing orders, interpretation of diagnostic studies, discussion with consultants, patient, and family members, as well as other required patient management activities is 50 minutes Please note the above document was generated using voice recognition software. It may contain grammatical, syntax or spelling errors. Any formal questions or concerns about the content, text or information contained within the body of this dictation should be directly addressed to the provider for clarification Admission and Anticipated Discharge Date Admission Date: July 31, 2025 Subjective patient seen and examined at bedside. She is lying on the bed comfortably; denies any pain or discomfort. Overnight, she had urinary retention for which Chiu catheter was placed. Review of Systems Review of Systems: All systems reviewed & are unremarkable except as noted in Subjective Physical Exam Physical Exam: Constitutional: WD/WN, vitals as above, NAD, sitting up in bed, pleasant, conversing easily Respiratory: normal respiratory effort, lungs clear to auscultation, no wheeze, rales, rhonchi. Normal insp/exp effort, no accessory muscle use Cardiovascular: RRR, no murmur, no edema Vessels: no JVD or carotid bruit Abdomen: normal bowel sounds, soft, nontender, no hepatosplenomegaly Musculoskeletal: no cyanosis or clubbing, extremities motor strength 5/5 Skin: no rashes, warm and dry normal turgor Neurologic: PERRL, EOMI, accommodation nl, no face palsy, no dysarthria CN's II- XI intact bilaterally and moves all extremities Psychiatric: A+Ox3, euthymic affect Results & Data Results & Data Vital Signs (Past 12 Hours) Vital Signs Temp Pulse Pulse Resp BP Pulse Ox O2 Del Method 08/01/25 08:04 36.8 C 73 18 115/70 95 Room Air 08/01/25 07:28 62 08/01/25 04:02 36.8 C 70 18 103/56 L 95 Room Air 07/31/25 23:36 36.6 C 69 18 129/77 96 Room Air 07/31/25 22:08 66
[2025-08-01] MEDS: POLYETHYLENE (MIRALAX) 17 GM PACK PO PRN (11:47)
--- NOTE | 2025-08-01 12:58 | Neurology Consultation ---
Date of Consultation August 01, 2025 Assessment & Plan (1) Seizure-like activity: -- Final decision regarding seizure medication pending EEG and MRI if able (pacemaker compatibleness to be determined) -- EEG inpatient v EEG outpatient if no reader available -- Pacemaker interrogation inpatient v outpatient if able -- Orthostatic vital signs -- Pt should be reported to DM and not drive for next six months -- seizure precautions -- Neurology follow-up in six weeks. 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 Given overall medical history and description of episodes suspect this is related to orthostatic hypotension v cardiac cause with seizure less likely. After discussion with family, opted to hold off on seizure medication pending EEG and further cardiac work-up. Telehealth Consultation Telehealth Information Telehealth Information: I performed this visit using a real-time telehealth connection between my location and the patients originating location ([facility]). After connecting through interactive tele-video, patient was identified by name and date of and/or wristband check.Patient (or authorized healthcare commercial pest control representative) was informed that this was a telemedicine visit and it was being conducted confidentially over secure lines. My office door was closed and no one else was present in the room with me.Patient (or authorized healthcare commercial pest control representative) provided consent to proceed with the visit, expressed an understanding of privacy and security of the telemedicine visit, and gave permission to have a hospital commercial pest control representative in the room in order to assist with the visit and to conduct portions of the visit, as needed. I informed the patient (or authorized healthcare commercial pest control representative) that I reviewed their record and presented the opportunity for them to ask any questions regarding the visit today. The patient agreed to participate. History of Present Illness Reason for Consultation: seizure-like activity Requesting Physician: Dr. 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 History primarily obtained from the patient's family at bedside, discussion with ED provider and associated chart review. Arrived to ED via EMS at 13:00 from home as a stroke alert. Patient called her granddaughter around 10:30 with c/o headache which she noted being the "worst headache of her life." Had asked her to bring her Excedrin over. Patient currently lives alone, however her granddaughter and her significant other live right next door. Her granddaughter and [id number] went over next door to give her the medication shortly following that phone call. They gave her the Excedrin and the patient lied back down on her couch. Shortly after doing so, the patient started to violently shake. This involved all four extremities and lasted anywhere from 1-2 minutes. Following this, the patient was acting extremely confused, slurring her words and had a questionable right-sided facial droop. She also had several bouts of vomiting after the shaking subsided. EMS was then called. According to her granddaughter, the patient had another bout of "full body shaking" while EMS was evaluating her. She continued to having vomiting, slurred speech, confusion and slight right-sided facial drooping as well. In ED, patient was initially A&O only to self. Emergent head CT was completed which revealed no acute intracranial findings. Head and neck CTA were also completed as part of the stroke protocol which were also grossly unremarkable. BSG WNL. Patient was seen and evaluated by telestroke neurology. Suspect seizure activity, recommended brain MRI and EEG. Advised to hold off on AEDs at this time pending seizure workup. Patient's mental status slowly returned back to baseline in the ED. Cognitive slowing but otherwise A&Ox4 at the time of my evaluation shortly after 14:00. Unable to recall the above events." Speaking to patient she does not recall shaking episode. She does recall preceding headache and feeling dizzy/lightheaded prior to episode. She had a similar episode in April and blood pressure was taken at the scene and reported to be low. She is reported to kind of "snap" out of episodes and state "no" when ambulance is brought up. She reports no history of seizure as a younger person but does report that she feels dizzy or lightheaded quite frequently. Allergies Allergy/AdvReac Type Severity Reaction Status Date / Time Iodinated Contrast Media Allergy Unknown DEATLY SICK Unverified 11/27/20 01:39 Home Medications Medication Instructions Recorded Confirmed Type aspirin 81 mg tablet,delayed 81 mg PO DAILY 11/27/20 07/31/25 History release cholecalciferol (vitamin D3) 25 25 mcg PO DAILY 11/27/20 07/31/25 History mcg (1,000 unit) tablet (Vitamin D3) cyanocobalamin (vitamin B-12) 100 100 mcg PO DAILY 11/27/20 07/31/25 History mcg tablet (Vitamin B-12) diltiazem HCl 240 mg 240 mg PO QAM 11/27/20 07/31/25 History capsule,extended release 24 hr losartan 50 mg tablet 25 mg PO QAM 11/27/20 07/31/25 History omeprazole 20 mg capsule,delayed 20 mg PO QAM 11/27/20 07/31/25 History release pravastatin 40 mg tablet 40 mg PO QPM 11/27/20 07/31/25 History hydrochlorothiazide 25 mg tablet 12.5 mg (1/2 x 25 mg) PO QAM 30 11/28/20 07/31/25 Rx days #15 tabs carvedilol 12.5 mg tablet 12.5 mg PO BID 07/31/25 07/31/25 History escitalopram oxalate 5 mg tablet 5 mg PO QPM 07/31/25 07/31/25 History memantine 10 mg tablet 10 mg PO BID 07/31/25 07/31/25 History potassium chloride 10 mEq 10 meq PO DAILY 07/31/25 07/31/25 History tablet,extended release Patient History Medical History Hypokalemia Dizziness Dental injury Facial laceration Acute hypokalemia Chest pain Syncope Social History Smoking Status: Never smoker Second Hand Exposure: No; Do You Dip or Chew Tobacco: No; Tobacco Cessation Education Requested by Patient: No Hx Alcohol Use: No Hx Substance Use: No Preferred Language: Polish Communication Ability: Effective Coremaker Apprentice Required: No Beliefs That Will Affect Care: None Current Living Situation: Alone Current Living Situation Comment: Grandkids live next door current occupational status: retired Other Information That Helps Us Care for You: No Feels Safe at Home: Yes Safety Concerns: Feels Safe At This Time Assistive Devices: Cane and Walker Review of Systems Negative aside from HPI. Physical Exam Patient resting comfortably in bed. Awake, alert and oriented. Able to name repeat follow simple and complex commands. Able to lift all four extremities against gravity. No facial droop, gaze palsy. Normal neurologic exam. Results & Data Vital Signs (Past 12 Hours) Vital Signs Temp Pulse Pulse Resp BP Pulse Ox O2 Del Method 08/01/25 12:02 Room Air 08/01/25 11:33 36.7 C 62 18 123/74 93 Room Air 08/01/25 08:04 36.8 C 73 18 115/70 95 Room Air 08/01/25 07:28 62 08/01/25 04:02 36.8 C 70 18 103/56 L 95 Room Air Laboratory Results Per chart Diagnostic Findings CT Head 07/31: unremarkable CTA H/N 07/31: unremarkable
[2025-08-01 13:24] LABS: Appearance Urine Clear (Clear); Bacteria Urine Automated None Seen (None Seen); Epithelial Cell Urine Auto 0-2 /hpf (0-2); Glucose Urine UA Negative (Negative)
[2025-08-01] MEDS: ACETAMINOPHEN 325 MG TAB PO PRN (21:18)
[2025-08-02 07:32] LABS: Hematocrit (blood only) 34.3 % (37.0-47.0); Hemoglobin 11.7 g/dl (12.0-16.0); Immature Granulocytes # (auto) 0.04 K/uL (0.01-0.20); Immature Granulocytes % (auto) 0.4 %; Mean Corpuscular Hemoglobin 29.9 pg (25.0-34.0); Mean Corpuscular Volume 87.7 fL (80.0-100.0); Platelet Count 262 K/uL (130-400); RDW Standard Deviation 47.9 fL (36.4-46.3); Red Blood Count 3.91 M/uL (4.20-5.40); White Blood Count 10.77 K/ul (4.8-10.8)
[2025-08-02 07:49] LABS: Anion Gap 6.0 (3-11); Blood Urea Nitrogen 18.0 mg/dl (6-23); Calcium 9.4 mg/dl (8.6-10.3); Carbon Dioxide 29.0 mmol/L (21-32); Chloride 102.0 mmol/L (98-107); Creatinine Clr Calc Pharmacy 45.8 ml/min; Glucose 97.0 mg/dl (70-99(Fasting)); Potassium 3.6 mmol/L (3.5-5.1); Sodium 137.0 mmol/L (136-145)
--- NOTE | 2025-08-02 09:49 | Hospitalist Progress Note ---
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 Arrived to ED via EMS at 13:00 from home as a stroke alert. Pt called granddaughter around 10:30 with c/o headache which she noted being the "worst headache of her life." Was given Excedrin and lied back down on couch. Shortly after doing so, pt started to violently shake. Shaking involved all four extremities and lasted anywhere from 1-2 minutes. Following this, pt was acting extremely confused, weak, slurring her words, vomiting and had a questionable R-sided facial droop. #Seizure-like activity with Maximiliano's paralysis vs. TIA/CVA Head CT, head CTA and neck CTA all grossly unremarkable, BSG WNL Pt seen by telestroke neurology: suspect seizure activity > TIA/CVA, recommended obtaining EEG and brain MRI; advised to hold off on AEDs at this time Pt's mental status slowly returned back to baseline in the ED Echocardiogram shows EF of 60 to 65%; interatrial septum is intact without evidence of ASD's, PFO Continue on aspirin, Lipitor. Continue to hold other antihypertensives other than Coreg. EEG pending; can be followed up as outpatient. Awaiting MRI of the brain Pacemaker interrogation Neurology follow-up in 6 weeks #Sacral pain s/p mechanical fall 2wk ago Patient reports feeling dizzy recently leading up to multiple falls. Will continue to hold her antihypertensives(hydrochlorothiazide, losartan, Cardizem); discontinue them if her blood pressure continues to be stable at discharge CTAP without any acute findings Orthostatic hypotension present. Patient's episodes of dizziness/mechanical fall likely related to weight. Discontinue all antihypertensives except Coreg at the time of discharge PT OT recommends rehab; will prefer [facility] if approved. Otherwise Home with home health. Appreciate case management help Acute urinary retention status post Chiu Patient found to have acute retention; Chiu catheter was placed on August 01, 2025 Plan for trial of void at the time of discharge #Hypomagnesemia- repleted #Hyponatremia- likely due to HCTZ; stop at DC #Several left renal cysts Incidentally noted on CTAP, recommend further OP eval #Dementia Appears quite mild, some slowed cognition observed during conversation but otherwise A&Ox3 Continue memantine #HTN-continue coreg; dc other antihypertensives #Palpitations 2/2 sensed atrial ectopy #Sinus 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 Continue BB uninterrupted for now #HLD Continue statin and ASA, Other chronic medical conditions: GERD - Continue PPI Anxiety/depression - Continue Lexapro DVT Prophylaxis: heparin Code Status: DNR/DNI PCP: Darrius Zavala DO Disposition: Admit to med/telemetry Discussed plan of care with patient's daughter at bedside. She is in agreement with the plan. Time spent evaluating patient, direct bedside care, chart review, placing orders, interpretation of diagnostic studies, discussion with consultants, patient, and family members, as well as other required patient management activities is 50 minutes Please note the above document was generated using voice recognition software. It may contain grammatical, syntax or spelling errors. Any formal questions or concerns about the content, text or information contained within the body of this dictation should be directly addressed to the provider for clarification Admission and Anticipated Discharge Date Admission Date: July 31, 2025 Subjective Patient seen and examined at bedside. She is lying on the bed comfortably; denies any pain or discomfort. No episode of altered mentation/seizure. Review of Systems Review of Systems: All systems reviewed & are unremarkable except as noted in Subjective Physical Exam Physical Exam: Constitutional: WD/WN, vitals as above, NAD, sitting up in bed, pleasant, conversing easily Respiratory: normal respiratory effort, lungs clear to auscultation, no wheeze, rales, rhonchi. Normal insp/exp effort, no accessory muscle use Cardiovascular: RRR, no murmur, no edema Vessels: no JVD or carotid bruit Abdomen: normal bowel sounds, soft, nontender, no hepatosplenomegaly Musculoskeletal: no cyanosis or clubbing, extremities motor strength 5/5 Skin: no rashes, warm and dry normal turgor Neurologic: PERRL, EOMI, accommodation nl, no face palsy, no dysarthria CN's II- XI intact bilaterally and moves all extremities Psychiatric: A+Ox3, euthymic affect Results & Data Results & Data Vital Signs (Past 12 Hours) Vital Signs Temp Pulse Pulse Resp BP Pulse Ox O2 Del Method 08/02/25 07:43 60 08/02/25 07:38 36.2 C L 62 20 147/86 H 95 Room Air 08/02/25 02:53 36.7 C 64 20 126/72 96 Room Air 08/01/25 22:35 36.6 C 66 18 118/69 97 Room Air 08/01/25 22:12 61
--- NOTE | 2025-08-02 10:11 | Electroencephalogram ---
EEG Procedure Note Date of Service August 02, 2025 Start / End Times Start Time: 7:45 AM End Time: 8:08 AM Referring Physician Cheyanne History Seizure-like activity Home Medication List Medication Instructions Recorded Confirmed Type aspirin 81 mg tablet,delayed 81 mg PO DAILY 11/27/20 07/31/25 History release cholecalciferol (vitamin D3) 25 25 mcg PO DAILY 11/27/20 07/31/25 History mcg (1,000 unit) tablet (Vitamin D3) cyanocobalamin (vitamin B-12) 100 100 mcg PO DAILY 11/27/20 07/31/25 History mcg tablet (Vitamin B-12) diltiazem HCl 240 mg 240 mg PO QAM 11/27/20 07/31/25 History capsule,extended release 24 hr losartan 50 mg tablet 25 mg PO QAM 11/27/20 07/31/25 History omeprazole 20 mg capsule,delayed 20 mg PO QAM 11/27/20 07/31/25 History release pravastatin 40 mg tablet 40 mg PO QPM 11/27/20 07/31/25 History hydrochlorothiazide 25 mg tablet 12.5 mg (1/2 x 25 mg) PO QAM 30 11/28/20 07/31/25 Rx days #15 tabs carvedilol 12.5 mg tablet 12.5 mg PO BID 07/31/25 07/31/25 History escitalopram oxalate 5 mg tablet 5 mg PO QPM 07/31/25 07/31/25 History memantine 10 mg tablet 10 mg PO BID 07/31/25 07/31/25 History potassium chloride 10 mEq 10 meq PO DAILY 07/31/25 07/31/25 History tablet,extended release Inpatient Medication List Acetaminophen (Acetaminophen 325 Mg Tab) 650 mg PO Q4H PRN PRN Reason: Pain or Fever Stop: 08/30/25 17:24 Last Admin: 08/02/25 09:34 Dose: 650 mg Documented By: Admin: 08/01/25 21:18 Dose: 650 mg Documented By: ISRAEL Aspirin (Aspirin 81 Mg Ectab) 81 mg PO DAILY KRISTEN Stop: 08/31/25 08:59 Last Admin: 08/02/25 09:29 Dose: 81 mg Documented By: Admin: 08/01/25 08:36 Dose: 81 mg Documented By: DAIN Carvedilol (Carvedilol 12.5 Mg Tab) 12.5 mg PO BID KRISTEN Stop: 08/30/25 20:59 Last Admin: 08/02/25 09:29 Dose: 12.5 mg Documented By: Admin: 08/01/25 21:18 Dose: 12.5 mg Documented By: Admin: 08/01/25 08:36 Dose: 12.5 mg Documented By: Admin: 07/31/25 21:18 Dose: Not Given Documented By: ISRAEL Cyanocobalamin (Cyanocobalamin (B-12) 100 Mcg Tablet) 100 mcg PO DAILY KRISTEN Stop: 08/31/25 08:59 Last Admin: 08/02/25 09:29 Dose: 100 mcg Documented By: Admin: 08/01/25 08:36 Dose: 100 mcg Documented By: DAIN Escitalopram Oxalate (Escitalopram Oxalate 10 Mg Tab) 5 mg PO QPM KRISTEN Stop: 08/30/25 20:59 Last Admin: 08/01/25 21:18 Dose: 5 mg Documented By: Admin: 07/31/25 21:21 Dose: 5 mg Documented By: ISRAEL Melatonin (Melatonin 3 Mg Tab) 3 mg PO HS PRN PRN Reason: Sleep Stop: 08/30/25 21:18 Last Admin: 08/01/25 21:19 Dose: 3 mg Documented By: Admin: 07/31/25 21:32 Dose: 3 mg Documented By: ISRAEL Memantine (Memantine Hcl 10 Mg Tab) 10 mg PO BID KRISTEN Stop: 08/30/25 20:59 Last Admin: 08/02/25 09:29 Dose: 10 mg Documented By: Admin: 08/01/25 21:19 Dose: 10 mg Documented By: Admin: 08/01/25 08:36 Dose: 10 mg Documented By: Admin: 07/31/25 21:21 Dose: 10 mg Documented By: ISRAEL Pantoprazole Sodium (Pantoprazole 40 Mg Tab) 40 mg PO QAM KRISTEN Stop: 08/31/25 08:59 Last Admin: 08/02/25 09:29 Dose: 40 mg Documented By: Admin: 08/01/25 08:36 Dose: 40 mg Documented By: DAIN Polyethylene Glycol (Polyethylene (Miralax) 17 Gm Pack) 17 gm PO DAILY PRN PRN Reason: Constipation Stop: 08/30/25 17:24 Last Admin: 08/02/25 09:42 Dose: 17 gm Documented By: Admin: 08/01/25 11:47 Dose: 17 gm Documented By: DAIN Pravastatin Sodium (Pravastatin Sod 40 Mg Tab) 40 mg PO QPM KRISTEN Stop: 08/30/25 20:59 Last Admin: 08/01/25 21:18 Dose: 40 mg Documented By: Admin: 07/31/25 21:20 Dose: 40 mg Documented By: ISRAEL Vitamin D (Cholecalciferol 25 Mcg (1000 Units) Tab) 25 mcg PO DAILY KRISTEN Stop: 08/31/25 08:59 Last Admin: 08/02/25 09:29 Dose: 25 mcg Documented By: Admin: 08/01/25 08:36 Dose: 25 mcg Documented By: DAIN Discontinued Medications Famotidine (Pepcid 20mg Iv Push) 20 mg in 5 mls @ 2.5 mls/min IV NOW STA Stop: 07/31/25 12:52 Last Admin: 07/31/25 13:03 Dose: 2.5 mls/min Documented By: GARTH Promethazine HCl (Phenergan) 6.25 mg in 50.25 mls @ 201 mls/hr IV NOW STA Stop: 07/31/25 13:54 Last Infusion: 07/31/25 14:46 Dose: Infused Documented By: darryn Admin: 07/31/25 14:16 Dose: 201 mls/hr Documented By: darryn Magnesium Sulfate/Dextrose (Magnesium Sulfate / D5w) 1 gm in 100 mls @ 100 mls/hr IV Q1H KRISTEN Stop: 07/31/25 16:15 Last Infusion: 07/31/25 19:05 Dose: Infused Documented By: Admin: 07/31/25 18:01 Dose: 100 mls/hr Documented By: Infusion: 07/31/25 15:31 Dose: Infused Documented By: darryn Admin: 07/31/25 14:30 Dose: 100 mls/hr Documented By: darryn Sodium Phosphate 12 mmol/ (Sodium Chloride) 254 mls @ 88 mls/hr IV ONE ONE Stop: 07/31/25 20:08 Last Infusion: 07/31/25 21:24 Dose: Infused Documented By: Admin: 07/31/25 18:01 Dose: 88 mls/hr Documented By: DAIN Ioversol (Optiray 320 125ml) 112 ml IV ONCE ONE Stop: 07/31/25 13:02 Last Admin: 07/31/25 13:02 Dose: 112 ml Documented By: JAYDEN Methylprednisolone (Methylprednisolone 125 Mg/2 Ml Vial) 125 mg IV NOW STA Stop: 07/31/25 12:52 Last Admin: 07/31/25 13:37 Dose: 125 mg Documented By: GARTH Metoclopramide HCl (Metoclopramide Hcl Inj 5 Mg/Ml 2 Ml Vial) 10 mg IV NOW STA Stop: 07/31/25 13:11 Last Admin: 07/31/25 13:56 Dose: 10 mg Documented By: JOSE Ondansetron HCl (Ondansetron Inj 2 Mg/Ml 2 Ml Vial) 4 mg IV NOW STA Stop: 07/31/25 12:52 Last Admin: 07/31/25 13:03 Dose: 4 mg Documented By: GARTH Ondansetron HCl (Ondansetron Inj 2 Mg/Ml 2 Ml Vial) 4 mg IV NOW STA Stop: 07/31/25 13:19 Last Admin: 07/31/25 13:56 Dose: 4 mg Documented By: JOSE Oxycodone HCl (Oxycodone Hcl Ir 5 Mg Tab (Immediate Release)) 5 mg PO NOW STA Stop: 07/31/25 21:20 Last Admin: 07/31/25 21:32 Dose: 5 mg Documented By: ISRAEL Description This is a 21 electrode EEG with a single channel dedicated to limited EKG. The electrodes were placed in accordance with the International 10-20 system. There is a posterior dominant rhythm of 10 Hz which is symmetrically distributed and attenuates with eye opening. There is a normal anterior to posterior organization. Photic stimulation is unremarkable. Hyperventilation is not performed. There is a symmetric frontal beta rhythm. There is a moderate degree of admixed generalized polymorphic theta activity. Movement artifact intermittently contaminates the study. Interpretation This awake, drowsy EEG reveals a normal background rhythm, admixed generalized slowing that may indicate a nonspecific encephalopathy, and movement artifact. No epileptiform abnormalities observed. [facility] Procedure Codes Indication for Procedure (1) Seizure-like activity: Neurology Neurology: 24720 EEG include record awake & drowsy
[2025-08-02] MEDS: GADOBUTROL 65ML VIAL IV ONE (12:48)
--- NOTE | 2025-08-02 13:00 | Magnetic Resonance Report ---
MRI OF THE BRAIN WITHOUT AND WITH IV CONTRAST SEIZURE PROTOCOL CLINICAL HISTORY: concern for seizure COMPARISON STUDY: No previous studies for comparison. TECHNIQUE: Utilizing a 1.5 Brooke magnet and dedicated coil, multiplanar, multiecho imaging of the br ain was performed pre and postcontrast administration. IV administration of 6.5 mL of Gadavist contr ast was uneventful. Thin cut coronal T2 imaging was performed according to seizure protocol. FINDINGS: Anterior or extra-axial mass lesions are visualized. Axial diffusion-weighted images reveal no evidence of acute or subacute infarction. The ventricular system is normal size and configuration for age. FLAIR images reveal scattered foci of increased signal within the white matter likely on a small vess el basis. Gradient echo images reveal no hemorrhagic products. There is mild symmetric hippocampal atrophy. No hippocampal masses are visualized. There is mild generalized atrophic change. Following administration of contrast, there are no abnormal enhancing lesions. IMPRESSION: 1. No acute intracranial findings 2. No evidence of acute or subacute infarction 3. No evidence of intracranial mass ACT 112: Negative or not required by law. Electronically signed by: Herberth Cook M.D. 08/02/2025 12:59 PM
[2025-08-02] MEDS: HEPARIN SOD 5,000 UNIT/0.5 ML VIAL SQ SCH (14:34)
[2025-08-03 03:04] VITALS: O2SAT 97
[2025-08-03 07:04] LABS: Hematocrit (blood only) 35.9 % (37.0-47.0); Hemoglobin 11.9 g/dl (12.0-16.0); Immature Granulocytes # (auto) 0.03 K/uL (0.01-0.20); Immature Granulocytes % (auto) 0.3 %; Mean Corpuscular Hemoglobin 29.2 pg (25.0-34.0); Mean Corpuscular Volume 88.2 fL (80.0-100.0); Platelet Count 262 K/uL (130-400); RDW Standard Deviation 48.1 fL (36.4-46.3); Red Blood Count 4.07 M/uL (4.20-5.40); White Blood Count 8.89 K/ul (4.8-10.8)
[2025-08-03 07:21] LABS: Anion Gap 7.0 (3-11); Blood Urea Nitrogen 14.0 mg/dl (6-23); Calcium 9.1 mg/dl (8.6-10.3); Carbon Dioxide 29.0 mmol/L (21-32); Chloride 102.0 mmol/L (98-107); Creatinine Clr Calc Pharmacy 51.9 ml/min; Glucose 84.0 mg/dl (70-99(Fasting)); Potassium 3.7 mmol/L (3.5-5.1); Sodium 138.0 mmol/L (136-145)
[2025-08-03] MEDS ORDERED: STROKE PATIENT DISCHARGE STA (07:36)
[2025-08-03 07:48] VITALS: BP 138/84; RESP 20; TEMP 98.6
--- NOTE | 2025-08-03 08:05 | Communication Note ---
Date of Service: August 03, 2025 MRI reviewed and largely unremarkable other than bilateral mild mesial temporal lobe sclerosis. EEG showed no epileptiform discharges. Would hold on starting an AED for now and recommend outpatient follow up.
[2025-08-03 09:44] VITALS: PULSE 63
--- NOTE | 2025-08-03 09:53 | Discharge Summary ---
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 History primarily obtained from the patient's family at bedside, discussion with ED provider and associated chart review. Arrived to ED via EMS at 13:00 from home as a stroke alert. Patient called her granddaughter around 10:30 with c/o headache which she noted being the "worst headache of her life." Had asked her to bring her Excedrin over. Patient currently lives alone, however her granddaughter and her significant other live right next door. Her granddaughter and [id number] went over next door to give her the medication shortly following that phone call. They gave her the Excedrin and the patient lied back down on her couch. Shortly after doing so, the patient started to violently shake. This involved all four extremities and lasted anywhere from 1-2 minutes. Following this, the patient was acting extremely confused, slurring her words and had a questionable right-sided facial droop. She also had several bouts of vomiting after the shaking subsided. EMS was then called. According to her granddaughter, the patient had another bout of "full body shaking" while EMS was evaluating her. She continued to having vomiting, slurred speech, confusion and slight right-sided facial drooping as well. In ED, patient was initially A&O only to self. Emergent head CT was completed which revealed no acute intracranial findings. Head and neck CTA were also completed as part of the stroke protocol which were also grossly unremarkable. BSG WNL. Patient was seen and evaluated by telestroke neurology. Suspect seizure activity, recommended brain MRI and EEG. Advised to hold off on AEDs at this time pending seizure workup. Patient's mental status slowly returned back to baseline in the ED. Cognitive slowing but otherwise A&Ox4 at the time of my evaluation shortly after 14:00. Unable to recall the above events. Admission Exam Per Admitting Provider General/Neuro: Elderly D, NAD, laying down in bed, A&Ox3. Family at bedside. HEENT: Normocephalic, atraumatic. Oropharynx normal, questionable R-sided lip drooping. Respiratory: Normal respiratory effort, CTAB. Cardiovascular: RRR, normal peripheral pulses, no BLE edema. Abdomen/GI: Normal bowel sounds, soft, nontender to palpation in all quadrants. Extremities/Musculoskeletal: No cyanosis or clubbing, weakness appreciated throughout but generally equal in all extremities, actively moves all extremities. Principal Diagnosis Seizure-like activity with Maximiliano's paralysis vs. TIA/CVA Discharge Exam Constitutional: WD/WN, vitals as above, NAD, sitting up in bed, pleasant, conversing easily Respiratory: normal respiratory effort, lungs clear to auscultation, no wheeze, rales, rhonchi. Normal insp/exp effort, no accessory muscle use Cardiovascular: RRR, no murmur, no edema Vessels: no JVD or carotid bruit Abdomen: normal bowel sounds, soft, nontender, no hepatosplenomegaly Musculoskeletal: no cyanosis or clubbing, extremities motor strength 5/5 Skin: no rashes, warm and dry normal turgor Neurologic: PERRL, EOMI, accommodation nl, no face palsy, no dysarthria CN's II- XI intact bilaterally and moves all extremities Psychiatric: A+Ox3, euthymic affect Discharge Data Allergies Allergy/AdvReac Type Severity Reaction Status Date / Time Iodinated Contrast Media Allergy Unknown DEATLY SICK Unverified 11/27/20 01:39 Consultations 07/31/25 14:06 ED Decision to Admit Stat 07/31/25 15:37 Consult Neurology Routine Ordered Studies 07/31/25 12:51 CT angio head w con Stat CT angio neck with con Stat CT head/brain wo con Stat 07/31/25 13:42 CT abd pelvis wo con Stat 08/02/25 09:02 MR brain seizure wo/w con Urgent Hospital Course (1) Seizure-like activity: (2) Stroke-like episode: Plan Patient is an 84y/o F with PMHx significant for HLD, palpitations secondary to sensed atrial ectopy, HTN, nonobstructive CAD, 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 Arrived to ED via EMS at 13:00 from home as a stroke alert. Pt called granddaughter around 10:30 with c/o headache which she noted being the "worst headache of her life." Was given Excedrin and lied back down on couch. Shortly after doing so, pt started to violently shake. Shaking involved all four extremities and lasted anywhere from 1-2 minutes. Following this, pt was acting extremely confused, weak, slurring her words, vomiting and had a questionable R-sided facial droop. #Seizure-like activity Orthostatic hypotension Multiple falls Head CT, head CTA and neck CTA all grossly unremarkable, BSG WNL Pt seen by telestroke neurology: suspect seizure activity > TIA/CVA, recommended obtaining EEG and brain MRI; advised to hold off on AEDs at this time Pt's mental status slowly returned back to baseline in the ED Echocardiogram shows EF of 60 to 65%; interatrial septum is intact without evidence of ASD's, PFO Patient was admitted to telemetry floor; underwent MRI of the brain which ruled out stroke. Pacemaker interrogation was done; no recent arrhythmias found. Patient reported symptoms of orthostatic hypotension in recent weeks/month leading to multiple falls. Her antihypertensives except Coreg were kept on hold. Her blood pressure trend during hospitalization was within range despite stopping multiple medication. EEG did not show any epileptiform activity. Patient did not have any signs of seizure during the hospitalization. Neurology did not recommend AEDs. Patient was discharged home. Cardizem, losartan and hydrochlorothiazide were stopped at the time of the discharge. Please note the above document was generated using voice recognition software. It may contain grammatical, syntax or spelling errors. Any formal questions or concerns about the content, text or information contained within the body of this dictation should be directly addressed to the provider for clarification Total Time Total Time Spent Total Time Spent (In Minutes): 45 Total Time Includes: Examination of the Patient, Discharge Planning, Medication Reconciliation, Communication With Other Providers and Other Discharge Plan Discharge Items Patient Disposition: Home - Self-Care Reason For Visit: STROKE ALERT Discharge Diagnosis: Orthostatic hypotension Condition on Discharge: Fair Activity: Resume your previous activity Non-emergency contact: Primary Care Provider Call non-emergency contact if: you have any medication questions and your symptoms worsen Follow-up/Referrals: Darrius Zavala DO [Primary Care Provider] - (Date & Time 08/09/2025 11:00 AM Provider: Darrius Zavala DO [facility] ) Diet: Regular Addtl Attending Provider Instructions: You were admitted to the hospital due to concern for stroke. The likely cause for your symptoms may is low blood pressure. Following medication are stopped; Stop taking diltiazem Stop taking hydrochlorothiazide Stop taking losartan Stop taking potassium chloride The only blood pressure medication you are currently on is Coreg 12.5 mg twice daily. When you were changing position from sitting to standing position; please take your time and balance yourself before walking. You can use compression stockings that can be purchased [id number] that go up to knee that could help prevent dizziness/imbalance. An appointment will be set up with a primary care doctor for follow-up Pending Studies at Discharge: No Stand-Alone Forms: [facility], Smoking Cessation Medications and DC Order Prescriptions: Continued pravastatin 40 mg tablet 40 mg PO QPM aspirin 81 mg Tablet,Delayed Release (Dr/Ec) 81 mg PO DAILY Patient Comments: cyanocobalamin (vitamin B-12) [Vitamin B-12] 100 mcg Tablet 100 mcg PO DAILY Patient Comments: omeprazole 20 mg capsule,delayed release(DR/EC) 20 mg PO QAM cholecalciferol (vitamin D3) [Vitamin D3] 25 mcg (1,000 unit) Tablet 25 mcg PO DAILY Patient Comments: carvedilol 12.5 mg tablet 12.5 mg PO BID memantine 10 mg tablet 10 mg PO BID escitalopram oxalate 5 mg tablet 5 mg PO QPM Discontinued losartan 50 mg tablet 25 mg PO QAM diltiazem HCl 240 mg capsule,extended release 24hr 240 mg PO QAM hydrochlorothiazide 25 mg tablet 12.5 mg PO QAM 30 Days Qty: 15 0RF potassium chloride 10 mEq tablet extended release 10 meq PO DAILY Discharge Orders: Discharge Order (Routine); Ordered 08/03/25 Ordered By: Otis Cormier/Other Patient Handouts: Prediabetes, 5 Steps for Eating Healthier Admission Data Admit Date/Time: 07/31/25 14:14 Attending Provider: Otis Ludwig Admit Provider: Alexandr Calles Primary Care Provider: Darrius Zavala Other Providers: Sri Davidson; Alexandr Calles; [facility] Other Interventions: Discharge Summary Assessment (RN) Last Done: 08/03/25 09:50
--- NOTE | 2025-08-03 10:16 | Electrocardiogram Report ---
Test Reason : Blood Pressure : */* mmHG Vent. Rate : 79 BPM Atrial Rate : 79 BPM P-R Int : 212 ms QRS Dur : 88 ms QT Int : 384 ms P-R-T Axes : * 25 0 degrees QTcB Int : 440 ms Atrial-paced rhythm with prolonged AV conduction Nonspecific ST and T wave abnormality Abnormal ECG When compared with ECG of 03-May-2025 19:52, Electronic atrial pacemaker has replaced Sinus rhythm Confirmed by Bakari Velázquez ([id number]) on 08/03/2025 10:15:53 AM Referred By: REFERRED SELF Confirmed By: Bakari Velázquez
== END 2025-08-03 10:32 | disposition home health service (06) | DRG 92 ==
LOC: ED 12:59 → SUATTDRO 14:14 → 2N 14:14